=== PATIENT | male | born 1945 | race Caucasian/White ===

== ENCOUNTER 2020-07-04 02:44 | Inpatient (IN) ==
[2020-07-04] MEDS ORDERED: ONDANSETRON 4 MG/2 ML VIAL IV STA (02:58)
[2020-07-04] MEDS ORDERED: MORPHINE 4 MG/1 ML VIAL IV STA (02:58)
[2020-07-04] MEDS ORDERED: FUROSEMIDE 100 MG/10 ML VIAL IV STA (02:58)
[2020-07-04] MEDS ORDERED: methylPREDNISolone SOD SUC 125 MG/2 ML VIAL IV STA (02:58)
[2020-07-04] MEDS ORDERED: ASPIRIN 325 MG TABLET PO STA (02:58)
[2020-07-04] MEDS ORDERED: FUROSEMIDE 20 MG/2 ML VIAL IV STA (03:04)
[2020-07-04] MEDS ORDERED: FUROSEMIDE 40 MG/4 ML VIAL ONE (03:04)
[2020-07-04 03:05] LABS: Basophils # 0.1 10*3/uL (0.0-0.2); Basophils % 0.8 % (0.0-0.8); Eosinophils # 0.3 10*3/uL (0.0-0.87); Eosinophils % 2.3 % (0.00-10.9); Hematocrit 41.5 VOL% (42.0-52.0); Hemoglobin 13.5 GM/DL (14.0-18.0); Immature Granulocytes % 0.6 %; Immature Granulocytes Absolute 0.07 #; Lymphocytes % 18.2 % (21.2-54.2); Mean Corpuscular HGB Conc 32.5 GM/DL (32-36); Mean Corpuscular Volume 92.4 FL (87-102); Mean Platelet Volume 9.4 FL (9.6-12.0); Neutrophils % 72.1 % (38.7-73.9); Platelet Count 254 T/CUMM (130-400); Red Blood Count 4.49 MC/CUMM (3.8-5.5); Red Cell Distribution Width 13.3 % (9.3-17.3); White Blood Count 11.1 T/CUMM (4-12)
[2020-07-04 03:28] LABS: Alanine Aminotransferase 37 U/L (16-61); Albumin 3.9 G/DL (3.4-5.0); Alkaline Phosphatase 61 U/L (45-117); Aspartate Amino Transferase 29 U/L (0-37); Bilirubin,Total < 0.39 MG/DL (0.2-1.0); Blood Urea Nitrogen 27 MG/DL (7-18); Calcium 9.1 MG/DL (8.5-10.1); Carbon Dioxide 27 MMOL/L (21-32); Estimated Glom Filtration Rate 73 ML/MIN; Glucose 356 MG/DL (74-106); Osmolality,Calculated 288.1 MOS/KG (273-304); Potassium 3.9 MMOL/L (3.5-5.1); Sodium 135 MMOL/L (136-145); Total Protein 7.5 G/DL (5.0-7.5)
[2020-07-04] MEDS ORDERED: INSULIN REGULAR 100 UNIT/ML SUBCUT STA (03:36)
[2020-07-04] MEDS ORDERED: NICOTINE 21 MG/24 HR PATCH TRANSDERM PRN (03:53)
[2020-07-04] MEDS ORDERED: ONDANSETRON 4 MG/2 ML VIAL IV PRN (03:53)
[2020-07-04] MEDS ORDERED: MORPHINE 4 MG/1 ML VIAL IV PRN (03:53)
[2020-07-04] MEDS ORDERED: GLUCAGON 1 MG VIAL IM PRN (03:53)
[2020-07-04] MEDS ORDERED: diphenhydrAMINE CAP 25 MG CAPSULE PO PRN (03:53)
[2020-07-04] MEDS ORDERED: ALUMINUM/MAGNES/SIMETH MAX STR 30 ML UDCUP PO PRN (03:53)
[2020-07-04] MEDS ORDERED: DEXTROSE 50% 25 GM/50 ML VIAL IV PRN (03:53)
[2020-07-04] MEDS ORDERED: hydrALAZINE 20 MG/1 ML VIAL IV PRN (03:53)
[2020-07-04 04:35] LABS: ABG HCO3 23.4 MMOL/L (20-26); ABG Oxygen Saturation 95.9 % (95-100); ABG PCO2 42.4 MM HG (35-48); ABG PO2 87.9 MM HG (80-95); ABG TCO2 24.7 MMOL/L (23-27)
[2020-07-04] MEDS ORDERED: DIAZEPAM 5 MG TABLET PO ONE ×2 (06:38→07:38)
[2020-07-04] MEDS ORDERED: ASPIRIN 325 MG TABLET PO ONE (06:38)
[2020-07-04] MEDS ORDERED: POTASSIUM CHLORIDE RIDER 10 MEQ in PREMIX 1 EACH IV PRN ×2 (06:38→07:38)
[2020-07-04] MEDS ORDERED: diphenhydrAMINE CAP 25 MG CAPSULE PO ONE ×2 (06:38→07:38)
[2020-07-04] MEDS ORDERED: MAGNESIUM SULF RIDER 2 GM in PREMIX 1 EACH IV PRN ×2 (06:38→07:38)
[2020-07-04] MEDS: INSULIN REGULAR 100 UNIT/ML SUBCUT SCH ×3 (06:56→17:40)
[2020-07-04] MEDS ORDERED: NITROGLYCERIN SL 0.4 MG TABLET SL PRN (06:56)
[2020-07-04] MEDS: ALBUTEROL/IPRATROPIUM 3 ML NEB RESP TX SCH ×3 (07:30→19:38)
[2020-07-04] MEDS ORDERED: SODIUM CHLORIDE 0.45% 1,000 ML IV SCH (08:00)
[2020-07-04] MEDS: SODIUM CHLORIDE 0.9% 1,000 ML IV SCH ×2 (08:52→16:49)
[2020-07-04] MEDS: ENOXAPARIN 100 MG/ML SYRINGE SUBCUT SCH ×2 (08:52→22:50)
[2020-07-04] MEDS: lisinopriL 20 MG TABLET PO SCH (08:52)
[2020-07-04] MEDS: RANOLAZINE 500 MG TABLET PO SCH ×2 (08:53→22:31)
[2020-07-04] MEDS: atenoloL 50 MG TABLET PO SCH ×2 (08:53→22:30)
[2020-07-04] MEDS: POTASSIUM CHLORIDE 20 MEQ TABLET PO SCH (08:53)
[2020-07-04] MEDS ORDERED: LIDOCAINE 1% 20 ML VIAL ONE (13:49)
[2020-07-04] MEDS ORDERED: fentaNYL 100 MCG/2 ML VIAL ONE (13:50)
[2020-07-04] MEDS ORDERED: MIDAZOLAM 2 MG/2 ML VIAL ONE (13:50)
[2020-07-04] MEDS ORDERED: HYDROmorphone 2 MG/1 ML VIAL ONE (15:17)
[2020-07-04] MEDS: FUROSEMIDE 40 MG/4 ML VIAL IV SCH (16:49)
[2020-07-04] MEDS: ROSUVASTATIN 20 MG TABLET PO SCH (22:31)
[2020-07-04] MEDS: INSULIN GLARGINE 100 UNIT/ML SUBCUT SCH (22:51)
[2020-07-05] MEDS: ALBUTEROL/IPRATROPIUM 3 ML NEB RESP TX SCH ×4 (00:26→19:38)
[2020-07-05] MEDS: SODIUM CHLORIDE 0.9% 1,000 ML IV SCH (00:43)
[2020-07-05] MEDS: INSULIN REGULAR 100 UNIT/ML SUBCUT SCH ×4 (00:59→18:18)
[2020-07-05] MEDS ORDERED: ALBUTEROL/IPRATROPIUM 3 ML NEB RESP TX PRN (05:09)
[2020-07-05 05:56] LABS: Basophils # 0.1 10*3/uL (0.0-0.2); Basophils % 0.4 % (0.0-0.8); Eosinophils % 0.1 % (0.00-10.9); Hematocrit 39.8 VOL% (42.0-52.0); Immature Granulocytes % 0.4 %; Immature Granulocytes Absolute 0.05 #; Lymphocytes # 2.1 10*3/uL (1.4-4.0); Lymphocytes % 16.1 % (21.2-54.2); Mean Corpuscular HGB Conc 32.7 GM/DL (32-36); Mean Corpuscular Volume 92.8 FL (87-102); Mean Platelet Volume 9.4 FL (9.6-12.0); Monocytes % 8.7 % (1.7-12.7); Neutrophils % 74.3 % (38.7-73.9); Platelet Count 261 T/CUMM (130-400); Red Blood Count 4.29 MC/CUMM (3.8-5.5); Red Cell Distribution Width 13.9 % (9.3-17.3); White Blood Count 13.1 T/CUMM (4-12)
[2020-07-05 06:07] LABS: Calcium 8.4 MG/DL (8.5-10.1); Osmolality,Calculated 285.7 MOS/KG (273-304); Potassium 4.1 MMOL/L (3.5-5.1)
[2020-07-05 06:14] LABS: CKMB % 4.2 %; Risk Ratio 4.54
[2020-07-05 06:18] LABS: Troponin I 19.1 NG/ML (0.00-0.045)
[2020-07-05] MEDS: FUROSEMIDE 40 MG/4 ML VIAL IV SCH ×2 (07:22→17:25)
[2020-07-05] MEDS: ENOXAPARIN 100 MG/ML SYRINGE SUBCUT SCH (08:17)
[2020-07-05] MEDS: lisinopriL 20 MG TABLET PO SCH (08:17)
[2020-07-05] MEDS: POTASSIUM CHLORIDE 20 MEQ TABLET PO SCH (08:17)
[2020-07-05] MEDS: RANOLAZINE 500 MG TABLET PO SCH ×2 (08:17→22:14)
[2020-07-05] MEDS: atenoloL 50 MG TABLET PO SCH ×2 (08:18→22:13)
[2020-07-05] MEDS: ASPIRIN EC 81 MG TABLET PO SCH (12:27)
[2020-07-05] MEDS: ROSUVASTATIN 20 MG TABLET PO SCH (22:12)
[2020-07-05] MEDS: TAMSULOSIN 0.4 MG CAPSULE PO SCH (22:13)
[2020-07-05] MEDS: APIXABAN 5 MG TABLET PO SCH (22:14)
[2020-07-05] MEDS: guaiFENesin/DM ER 600-30 MG TABLET PO PRN (22:14)
[2020-07-05] MEDS: ACETAMINOPHEN 325 MG TABLET PO PRN (22:16)
[2020-07-05] MEDS: INSULIN GLARGINE 100 UNIT/ML SUBCUT SCH (22:20)
[2020-07-06] MEDS: ALBUTEROL/IPRATROPIUM 3 ML NEB RESP TX SCH ×4 (00:43→19:21)
[2020-07-06 05:30] LABS: Calcium 7.8 MG/DL (8.5-10.1); Osmolality,Calculated 281.8 MOS/KG (273-304)
[2020-07-06] MEDS: INSULIN REGULAR 100 UNIT/ML SUBCUT SCH ×5 (06:00→23:22)
[2020-07-06] MEDS ORDERED: clonazePAM 0.5 MG TABLET PO PRN (07:49)
[2020-07-06] MEDS ORDERED: AZITHROMYCIN 250 MG TABLET PO ONE (08:30)
[2020-07-06] MEDS ORDERED: FUROSEMIDE 20 MG TABLET PO SCH (09:00)
[2020-07-06 09:04] LABS: Basophils % 0.4 % (0.0-0.8); Eosinophils % 0.1 % (0.00-10.9); Hematocrit 34.3 VOL% (42.0-52.0); Hemoglobin 11.6 GM/DL (14.0-18.0); Immature Granulocytes % 0.4 %; Immature Granulocytes Absolute 0.04 #; Lymphocytes # 1.2 10*3/uL (1.4-4.0); Lymphocytes % 11.2 % (21.2-54.2); Mean Corpuscular HGB Conc 33.8 GM/DL (32-36); Mean Corpuscular Volume 90.5 FL (87-102); Mean Platelet Volume 9.6 FL (9.6-12.0); Monocytes % 11.3 % (1.7-12.7); Neutrophils % 76.6 % (38.7-73.9); Platelet Count 179 T/CUMM (130-400); Red Blood Count 3.79 MC/CUMM (3.8-5.5); Red Cell Distribution Width 13.5 % (9.3-17.3); White Blood Count 10.7 T/CUMM (4-12)
[2020-07-06] MEDS: guaiFENesin/DM ER 600-30 MG TABLET PO PRN (09:46)
[2020-07-06] MEDS: ASPIRIN EC 81 MG TABLET PO SCH (09:46)
[2020-07-06] MEDS: atenoloL 50 MG TABLET PO SCH ×2 (09:46→20:30)
[2020-07-06] MEDS: APIXABAN 5 MG TABLET PO SCH ×2 (09:47→20:30)
[2020-07-06] MEDS: OLMESARTAN 20 MG TABLET PO SCH (09:47)
[2020-07-06] MEDS: TAMSULOSIN 0.4 MG CAPSULE PO SCH ×2 (09:47→20:30)
[2020-07-06] MEDS: POTASSIUM CHLORIDE 20 MEQ TABLET PO SCH (09:47)
[2020-07-06] MEDS: MAGNESIUM CHLORIDE 64 MG TABLET PO SCH (09:48)
[2020-07-06] MEDS: FUROSEMIDE 40 MG/4 ML VIAL IV SCH ×2 (09:49→15:40)
[2020-07-06] MEDS: GLIMEPIRIDE 4 MG TABLET PO SCH (10:56)
[2020-07-06] MEDS: ACETAMINOPHEN 325 MG TABLET PO PRN (20:29)
[2020-07-06] MEDS: INSULIN GLARGINE 100 UNIT/ML SUBCUT SCH (20:30)
[2020-07-06] MEDS: ROSUVASTATIN 20 MG TABLET PO SCH (20:30)
[2020-07-07] MEDS: ALBUTEROL/IPRATROPIUM 3 ML NEB RESP TX SCH ×4 (00:30→19:21)
[2020-07-07] MEDS: ACETAMINOPHEN 325 MG TABLET PO PRN ×2 (04:55→13:37)
[2020-07-07] MEDS: INSULIN REGULAR 100 UNIT/ML SUBCUT SCH ×4 (05:50→22:05)
[2020-07-07 08:53] LABS: Calcium 8.2 MG/DL (8.5-10.1); Osmolality,Calculated 277.4 MOS/KG (273-304)
[2020-07-07] MEDS: GLIMEPIRIDE 4 MG TABLET PO SCH (09:55)
[2020-07-07] MEDS: AZITHROMYCIN 250 MG TABLET PO SCH (09:55)
[2020-07-07] MEDS: FUROSEMIDE 40 MG TABLET PO SCH (09:55)
[2020-07-07] MEDS: TAMSULOSIN 0.4 MG CAPSULE PO SCH ×2 (09:56→21:36)
[2020-07-07] MEDS: ASPIRIN EC 81 MG TABLET PO SCH (09:56)
[2020-07-07] MEDS: MAGNESIUM CHLORIDE 64 MG TABLET PO SCH (09:56)
[2020-07-07] MEDS: guaiFENesin/DM ER 600-30 MG TABLET PO PRN ×2 (09:56→21:37)
[2020-07-07] MEDS: APIXABAN 5 MG TABLET PO SCH ×2 (09:56→21:37)
[2020-07-07] MEDS: POTASSIUM CHLORIDE 20 MEQ TABLET PO SCH (09:56)
[2020-07-07] MEDS: methylPREDNISolone SOD SUC 40 MG/1 ML VIAL IV SCH ×2 (09:56→17:10)
[2020-07-07] MEDS: cefTRIAXone 1,000 MG in SYRINGE 1 EACH IV SCH (09:59)
[2020-07-07] MEDS ORDERED: metOLazone 5 MG TABLET PO SCH (12:00)
[2020-07-07] MEDS: BUDESONIDE/FORMOTEROL 160-4.5 INHALER 6 GM INH SCH ×2 (12:54→21:37)
[2020-07-07] MEDS: ROSUVASTATIN 20 MG TABLET PO SCH (21:36)
[2020-07-07] MEDS: INSULIN GLARGINE 100 UNIT/ML SUBCUT SCH (22:06)
[2020-07-08] MEDS: ALBUTEROL/IPRATROPIUM 3 ML NEB RESP TX SCH ×4 (00:22→19:51)
[2020-07-08] MEDS: methylPREDNISolone SOD SUC 40 MG/1 ML VIAL IV SCH ×2 (01:45→08:54)
[2020-07-08] MEDS: INSULIN REGULAR 100 UNIT/ML SUBCUT SCH ×4 (01:46→17:22)
[2020-07-08 07:12] LABS: Hematocrit 33.3 VOL% (42.0-52.0); Hemoglobin 11.2 GM/DL (14.0-18.0); Immature Granulocytes % 0.5 %; Immature Granulocytes Absolute 0.03 #; Lymphocytes # 0.5 10*3/uL (1.4-4.0); Lymphocytes % 7.7 % (21.2-54.2); Mean Corpuscular HGB Conc 33.6 GM/DL (32-36); Mean Corpuscular Volume 89.5 FL (87-102); Mean Platelet Volume 9.9 FL (9.6-12.0); Monocytes % 6.1 % (1.7-12.7); Neutrophils % 85.7 % (38.7-73.9); Platelet Count 196 T/CUMM (130-400); Red Blood Count 3.72 MC/CUMM (3.8-5.5); Red Cell Distribution Width 13.2 % (9.3-17.3); White Blood Count 5.9 T/CUMM (4-12)
[2020-07-08 07:30] LABS: Bilirubin,Total 0.7 MG/DL (0.2-1.0); Calcium 8.4 MG/DL (8.5-10.1); Osmolality,Calculated 283.1 MOS/KG (273-304); Potassium 3.9 MMOL/L (3.5-5.1); Total Protein 6.8 G/DL (6.4-8.2)
[2020-07-08] MEDS: GLIMEPIRIDE 4 MG TABLET PO SCH (08:49)
[2020-07-08] MEDS: FUROSEMIDE 40 MG TABLET PO SCH (08:49)
[2020-07-08] MEDS: POTASSIUM CHLORIDE 20 MEQ TABLET PO SCH (08:49)
[2020-07-08] MEDS: TAMSULOSIN 0.4 MG CAPSULE PO SCH ×2 (08:49→20:50)
[2020-07-08] MEDS: APIXABAN 5 MG TABLET PO SCH ×2 (08:49→20:49)
[2020-07-08] MEDS: AZITHROMYCIN 250 MG TABLET PO SCH (08:49)
[2020-07-08] MEDS: ASPIRIN EC 81 MG TABLET PO SCH (08:49)
[2020-07-08] MEDS: MAGNESIUM CHLORIDE 64 MG TABLET PO SCH (08:51)
[2020-07-08] MEDS: OLMESARTAN 20 MG TABLET PO SCH (08:54)
[2020-07-08] MEDS: atenoloL 50 MG TABLET PO SCH ×2 (08:54→20:49)
[2020-07-08] MEDS: BUDESONIDE/FORMOTEROL 160-4.5 INHALER 6 GM INH SCH ×2 (08:54→20:51)
[2020-07-08] MEDS: cefTRIAXone 1,000 MG in SYRINGE 1 EACH IV SCH (08:57)
[2020-07-08] MEDS: ISOSORBIDE MONONITRATE 30 MG TABLET PO SCH (09:55)
[2020-07-08] MEDS: predniSONE 20 MG TABLET PO SCH (09:55)
[2020-07-08] MEDS: ROSUVASTATIN 20 MG TABLET PO SCH (20:48)
[2020-07-08] MEDS: guaiFENesin/DM ER 600-30 MG TABLET PO PRN (20:50)
[2020-07-08] MEDS: ZALEPLON 5 MG CAPSULE PO PRN (20:50)
[2020-07-08] MEDS: INSULIN GLARGINE 100 UNIT/ML SUBCUT SCH (21:11)
[2020-07-09] MEDS: ZALEPLON 5 MG CAPSULE PO PRN ×2 (00:45→21:47)
[2020-07-09] MEDS: INSULIN REGULAR 100 UNIT/ML SUBCUT SCH ×4 (00:46→18:06)
[2020-07-09] MEDS: ALBUTEROL/IPRATROPIUM 3 ML NEB RESP TX SCH ×4 (07:30→19:25)
[2020-07-09] MEDS: AZITHROMYCIN 250 MG TABLET PO SCH (08:51)
[2020-07-09] MEDS: APIXABAN 5 MG TABLET PO SCH ×2 (08:51→21:46)
[2020-07-09] MEDS: POTASSIUM CHLORIDE 20 MEQ TABLET PO SCH (08:52)
[2020-07-09] MEDS: TAMSULOSIN 0.4 MG CAPSULE PO SCH ×2 (08:52→21:48)
[2020-07-09] MEDS: GLIMEPIRIDE 4 MG TABLET PO SCH (08:53)
[2020-07-09] MEDS: FUROSEMIDE 40 MG TABLET PO SCH (08:55)
[2020-07-09] MEDS: atenoloL 50 MG TABLET PO SCH ×2 (08:56→21:47)
[2020-07-09] MEDS: predniSONE 20 MG TABLET PO SCH (08:56)
[2020-07-09] MEDS: OLMESARTAN 20 MG TABLET PO SCH (08:56)
[2020-07-09] MEDS: ISOSORBIDE MONONITRATE 30 MG TABLET PO SCH (08:57)
[2020-07-09] MEDS: ASPIRIN EC 81 MG TABLET PO SCH (08:57)
[2020-07-09] MEDS: BUDESONIDE/FORMOTEROL 160-4.5 INHALER 6 GM INH SCH ×2 (08:59→21:54)
[2020-07-09] MEDS: cefTRIAXone 1,000 MG in SYRINGE 1 EACH IV SCH (09:00)
[2020-07-09] MEDS: MAGNESIUM CHLORIDE 64 MG TABLET PO SCH (09:00)
[2020-07-09] MEDS: ROSUVASTATIN 20 MG TABLET PO SCH (21:46)
[2020-07-09] MEDS: INSULIN GLARGINE 100 UNIT/ML SUBCUT SCH (21:47)
[2020-07-09] MEDS: guaiFENesin/DM ER 600-30 MG TABLET PO PRN (21:48)
[2020-07-10] MEDS: ZALEPLON 5 MG CAPSULE PO PRN (00:13)
[2020-07-10] MEDS: INSULIN REGULAR 100 UNIT/ML SUBCUT SCH ×3 (01:08→14:26)
[2020-07-10] MEDS: ALBUTEROL/IPRATROPIUM 3 ML NEB RESP TX SCH ×3 (01:40→12:28)
[2020-07-10] MEDS: ACETAMINOPHEN 325 MG TABLET PO PRN (05:49)
[2020-07-10 08:40] LABS: Basophils % 0.2 % (0.0-0.8); Eosinophils # 0.1 10*3/uL (0.0-0.87); Eosinophils % 0.6 % (0.00-10.9); Hematocrit 36.1 VOL% (42.0-52.0); Hemoglobin 11.8 GM/DL (14.0-18.0); Immature Granulocytes % 0.6 %; Immature Granulocytes Absolute 0.05 #; Lymphocytes # 1.5 10*3/uL (1.4-4.0); Lymphocytes % 17.6 % (21.2-54.2); Mean Corpuscular HGB Conc 32.7 GM/DL (32-36); Mean Corpuscular Volume 91.9 FL (87-102); Mean Platelet Volume 9.7 FL (9.6-12.0); Monocytes % 12.9 % (1.7-12.7); Neutrophils % 68.1 % (38.7-73.9); Platelet Count 247 T/CUMM (130-400); Red Blood Count 3.93 MC/CUMM (3.8-5.5); Red Cell Distribution Width 13.2 % (9.3-17.3); White Blood Count 8.6 T/CUMM (4-12)
[2020-07-10] MEDS: AZITHROMYCIN 250 MG TABLET PO SCH (08:48)
[2020-07-10] MEDS: ISOSORBIDE MONONITRATE 30 MG TABLET PO SCH (08:48)
[2020-07-10] MEDS: TAMSULOSIN 0.4 MG CAPSULE PO SCH (08:49)
[2020-07-10] MEDS: POTASSIUM CHLORIDE 20 MEQ TABLET PO SCH (08:49)
[2020-07-10] MEDS: OLMESARTAN 20 MG TABLET PO SCH (08:49)
[2020-07-10] MEDS: MAGNESIUM CHLORIDE 64 MG TABLET PO SCH (08:50)
[2020-07-10] MEDS: predniSONE 20 MG TABLET PO SCH (08:50)
[2020-07-10] MEDS: ASPIRIN EC 81 MG TABLET PO SCH (08:50)
[2020-07-10] MEDS: FUROSEMIDE 40 MG TABLET PO SCH (08:50)
[2020-07-10] MEDS: atenoloL 50 MG TABLET PO SCH (08:50)
[2020-07-10] MEDS: APIXABAN 5 MG TABLET PO SCH (08:50)
[2020-07-10] MEDS: GLIMEPIRIDE 4 MG TABLET PO SCH (08:51)
[2020-07-10] MEDS: cefTRIAXone 1,000 MG in SYRINGE 1 EACH IV SCH (08:51)
[2020-07-10 08:53] LABS: Calcium 8.7 MG/DL (8.5-10.1); Osmolality,Calculated 286.7 MOS/KG (273-304); Potassium 4.1 MMOL/L (3.5-5.1)
[2020-07-10] MEDS: BUDESONIDE/FORMOTEROL 160-4.5 INHALER 6 GM INH SCH (08:58)
[2020-07-10 12:13] VITALS: BP 101/56
== END 2020-07-10 16:26 | disposition home or self-care (01) | DRG 280 ==
LOC: EDBD → EDUNIT# → N.ED 02:44 → SUATTDRO 03:53 → N.EDINP 03:53 → N.TELEN 04:30
PROVIDERS: ADMIT Hospitalist; ATTEND Hospitalist

== ENCOUNTER 2020-07-20 20:22 | Inpatient (IN) ==
[2020-07-20 20:56] LABS: Basophils # 0.1 10*3/uL (0.0-0.2); Basophils % 0.5 % (0.0-0.8); Eosinophils # 0.2 10*3/uL (0.0-0.87); Hematocrit 40.3 VOL% (42.0-52.0); Hemoglobin 12.8 GM/DL (14.0-18.0); Immature Granulocytes % 0.4 %; Immature Granulocytes Absolute 0.06 #; Lymphocytes # 2.5 10*3/uL (1.4-4.0); Lymphocytes % 17.1 % (21.2-54.2); Mean Corpuscular HGB Conc 31.8 GM/DL (32-36); Mean Corpuscular Volume 94.2 FL (87-102); Mean Platelet Volume 9.3 FL (9.6-12.0); Monocytes % 5.9 % (1.7-12.7); Neutrophils % 75.1 % (38.7-73.9); Platelet Count 319 T/CUMM (130-400); Red Blood Count 4.28 MC/CUMM (3.8-5.5); Red Cell Distribution Width 13.4 % (9.3-17.3); White Blood Count 14.6 T/CUMM (4-12)
[2020-07-20 21:04] LABS: PT Patient Result 11.2 SECS (9.8-11.9); Partial Thromboplastin Time 26.5 SECS (23.9-33.8)
[2020-07-20 21:14] LABS: Alanine Aminotransferase 49 U/L (16-61); Albumin 3.5 G/DL (3.4-5.0); Alkaline Phosphatase 56 U/L (45-117); Aspartate Amino Transferase 25 U/L (0-37); Blood Urea Nitrogen 24 MG/DL (7-18); Calcium 8.8 MG/DL (8.5-10.1); Carbon Dioxide 23 MMOL/L (21-32); Estimated Glom Filtration Rate 70 ML/MIN; Glucose 203 MG/DL (74-106); Osmolality,Calculated 288.4 MOS/KG (273-304); Potassium 4.1 MMOL/L (3.5-5.1); Sodium 140 MMOL/L (136-145); Total Protein 6.9 G/DL (6.4-8.2)
[2020-07-20 21:31] LABS: Troponin I 0.373 NG/ML (0.00-0.045)
[2020-07-20] MEDS ORDERED: cefTRIAXone 1,000 MG in SODIUM CHLORIDE 0.9% 100 ML IV STA (21:51)
[2020-07-20] MEDS ORDERED: SODIUM CHLORIDE 0.9% 500 ML IV STA (21:52)
[2020-07-21] MEDS ORDERED: FUROSEMIDE 40 MG/4 ML VIAL IV STA (01:23)
[2020-07-21] MEDS ORDERED: ACETAMINOPHEN 325 MG TABLET PO PRN (02:37)
[2020-07-21] MEDS ORDERED: GLUCAGON 1 MG VIAL IM PRN (02:37)
[2020-07-21] MEDS ORDERED: DOCUSATE SODIUM 100 MG CAPSULE PO PRN (02:37)
[2020-07-21] MEDS ORDERED: ONDANSETRON 4 MG/2 ML VIAL IV PRN (02:37)
[2020-07-21] MEDS ORDERED: DEXTROSE 50% 25 GM/50 ML VIAL IV PRN (02:37)
[2020-07-21] MEDS ORDERED: ALBUTEROL 2.5 MG/3 ML NEB RESP TX PRN (02:37)
[2020-07-21] MEDS: methylPREDNISolone SOD SUC 40 MG/1 ML VIAL IV SCH ×2 (02:58→15:59)
[2020-07-21] MEDS: CEFEPIME 1,000 MG in SODIUM CHLORIDE 0.9% 100 ML IV SCH ×4 (03:00→21:31)
[2020-07-21 05:22] LABS: Basophils # 0.1 10*3/uL (0.0-0.2); Basophils % 0.4 % (0.0-0.8); Eosinophils # 0.1 10*3/uL (0.0-0.87); Eosinophils % 0.6 % (0.00-10.9); Hemoglobin 12.2 GM/DL (14.0-18.0); Immature Granulocytes % 0.6 %; Immature Granulocytes Absolute 0.08 #; Lymphocytes # 1.3 10*3/uL (1.4-4.0); Lymphocytes % 8.9 % (21.2-54.2); Mean Corpuscular HGB Conc 32.1 GM/DL (32-36); Mean Corpuscular Volume 93.4 FL (87-102); Mean Platelet Volume 9.1 FL (9.6-12.0); Monocytes % 3.5 % (1.7-12.7); Platelet Count 295 T/CUMM (130-400); Red Blood Count 4.07 MC/CUMM (3.8-5.5); Red Cell Distribution Width 13.4 % (9.3-17.3); White Blood Count 14.3 T/CUMM (4-12)
[2020-07-21 05:37] LABS: Calcium 8.9 MG/DL (8.5-10.1); Osmolality,Calculated 287.3 MOS/KG (273-304); Potassium 4.1 MMOL/L (3.5-5.1)
[2020-07-21] MEDS: ALBUTEROL/IPRATROPIUM 3 ML NEB RESP TX SCH ×3 (07:15→20:55)
[2020-07-21] MEDS: FUROSEMIDE 40 MG/4 ML VIAL IV SCH ×2 (08:32→16:17)
[2020-07-21] MEDS ORDERED: NITROGLYCERIN SL 0.4 MG TABLET SL PRN (08:37)
[2020-07-21] MEDS ORDERED: IPRATROPIUM/ALBUTEROL INHALER INH SCH (09:00)
[2020-07-21] MEDS: INSULIN LISPRO 100 UNIT/ML SUBCUT SCH ×4 (10:00→21:31)
[2020-07-21] MEDS: BUDESONIDE/FORMOTEROL 160-4.5 INHALER 6 GM INH SCH ×2 (10:00→21:39)
[2020-07-21] MEDS: GLIMEPIRIDE 4 MG TABLET PO SCH (11:02)
[2020-07-21] MEDS: clonazePAM 0.5 MG TABLET PO PRN (11:02)
[2020-07-21] MEDS: NEBIVOLOL 5 MG TABLET PO SCH (11:03)
[2020-07-21] MEDS: APIXABAN 5 MG TABLET PO SCH ×2 (11:03→21:29)
[2020-07-21] MEDS: TAMSULOSIN 0.4 MG CAPSULE PO SCH ×2 (11:03→21:29)
[2020-07-21] MEDS: MAGNESIUM CHLORIDE 64 MG TABLET PO SCH (11:04)
[2020-07-21] MEDS: ISOSORBIDE MONONITRATE 30 MG TABLET PO SCH (11:04)
[2020-07-21] MEDS: OLMESARTAN 20 MG TABLET PO SCH (11:07)
[2020-07-21] MEDS: ASPIRIN EC 81 MG TABLET PO SCH (11:07)
[2020-07-21] MEDS: AMIODARONE 200 MG TABLET PO SCH ×2 (12:51→21:29)
[2020-07-21] MEDS: metFORMIN 500 MG TABLET PO SCH (16:17)
[2020-07-21] MEDS: ROSUVASTATIN 20 MG TABLET PO SCH (21:29)
[2020-07-21] MEDS: INSULIN GLARGINE 100 UNIT/ML SUBCUT SCH (21:30)
[2020-07-22] MEDS: ALBUTEROL/IPRATROPIUM 3 ML NEB RESP TX SCH ×4 (01:04→21:21)
[2020-07-22] MEDS: methylPREDNISolone SOD SUC 40 MG/1 ML VIAL IV SCH ×2 (03:10→14:48)
[2020-07-22] MEDS: CEFEPIME 1,000 MG in SODIUM CHLORIDE 0.9% 100 ML IV SCH ×4 (03:14→20:12)
[2020-07-22 04:42] LABS: Basophils % 0.2 % (0.0-0.8); Hematocrit 32.1 VOL% (42.0-52.0); Hemoglobin 10.3 GM/DL (14.0-18.0); Immature Granulocytes % 0.2 %; Immature Granulocytes Absolute 0.02 #; Lymphocytes # 0.9 10*3/uL (1.4-4.0); Mean Corpuscular HGB Conc 32.1 GM/DL (32-36); Mean Corpuscular Volume 91.7 FL (87-102); Mean Platelet Volume 9.6 FL (9.6-12.0); Monocytes % 6.2 % (1.7-12.7); Neutrophils % 82.4 % (38.7-73.9); Platelet Count 247 T/CUMM (130-400); Red Cell Distribution Width 13.5 % (9.3-17.3); White Blood Count 8.1 T/CUMM (4-12)
[2020-07-22 05:10] LABS: Calcium 8.4 MG/DL (8.5-10.1); Osmolality,Calculated 291.4 MOS/KG (273-304); Potassium 3.8 MMOL/L (3.5-5.1)
[2020-07-22] MEDS: INSULIN LISPRO 100 UNIT/ML SUBCUT SCH ×4 (09:26→21:00)
[2020-07-22] MEDS: APIXABAN 5 MG TABLET PO SCH ×2 (09:27→20:12)
[2020-07-22] MEDS: metFORMIN 500 MG TABLET PO SCH ×2 (09:27→16:45)
[2020-07-22] MEDS: AMIODARONE 200 MG TABLET PO SCH ×2 (09:27→20:12)
[2020-07-22] MEDS: MAGNESIUM CHLORIDE 64 MG TABLET PO SCH (09:27)
[2020-07-22] MEDS: ASPIRIN EC 81 MG TABLET PO SCH (09:27)
[2020-07-22] MEDS: TAMSULOSIN 0.4 MG CAPSULE PO SCH ×2 (09:27→20:11)
[2020-07-22] MEDS: OLMESARTAN 20 MG TABLET PO SCH (09:27)
[2020-07-22] MEDS: GLIMEPIRIDE 4 MG TABLET PO SCH (09:27)
[2020-07-22] MEDS: NEBIVOLOL 5 MG TABLET PO SCH (09:28)
[2020-07-22] MEDS: FUROSEMIDE 40 MG/4 ML VIAL IV SCH ×2 (09:29→16:46)
[2020-07-22] MEDS: ISOSORBIDE MONONITRATE 30 MG TABLET PO SCH (09:29)
[2020-07-22] MEDS ORDERED: ZALEPLON 5 MG CAPSULE PO PRN (13:10)
[2020-07-22] MEDS: POLYETHYLENE GLYCOL POWDER 17 GM PACK PO SCH ×2 (14:47→20:11)
[2020-07-22] MEDS: BUDESONIDE/FORMOTEROL 160-4.5 INHALER 6 GM INH SCH ×2 (15:41→22:37)
[2020-07-22] MEDS: DOCUSATE SODIUM 100 MG CAPSULE PO SCH (20:11)
[2020-07-22] MEDS: SENNA 8.6 MG TABLET PO SCH (20:11)
[2020-07-22] MEDS: DOXYCYCLINE HYCLATE 100 MG CAPSULE PO SCH (20:11)
[2020-07-22] MEDS: ROSUVASTATIN 20 MG TABLET PO SCH (20:12)
[2020-07-22] MEDS: INSULIN GLARGINE 100 UNIT/ML SUBCUT SCH (21:01)
[2020-07-23] MEDS: ALBUTEROL/IPRATROPIUM 3 ML NEB RESP TX SCH ×4 (00:10→19:36)
[2020-07-23] MEDS: CEFEPIME 1,000 MG in SODIUM CHLORIDE 0.9% 100 ML IV SCH ×4 (04:00→20:45)
[2020-07-23] MEDS: methylPREDNISolone SOD SUC 40 MG/1 ML VIAL IV SCH ×2 (04:00→14:36)
[2020-07-23 06:39] LABS: Basophils % 0.1 % (0.0-0.8); Hematocrit 35.8 VOL% (42.0-52.0); Hemoglobin 11.9 GM/DL (14.0-18.0); Immature Granulocytes % 0.5 %; Immature Granulocytes Absolute 0.06 #; Lymphocytes # 0.9 10*3/uL (1.4-4.0); Lymphocytes % 7.6 % (21.2-54.2); Mean Corpuscular HGB Conc 33.2 GM/DL (32-36); Mean Platelet Volume 9.5 FL (9.6-12.0); Monocytes % 5.1 % (1.7-12.7); Neutrophils % 86.7 % (38.7-73.9); Platelet Count 310 T/CUMM (130-400); Red Blood Count 3.85 MC/CUMM (3.8-5.5); Red Cell Distribution Width 13.8 % (9.3-17.3); White Blood Count 12.1 T/CUMM (4-12)
[2020-07-23 06:56] LABS: Calcium 9.1 MG/DL (8.5-10.1); Osmolality,Calculated 291.8 MOS/KG (273-304); Potassium 4.7 MMOL/L (3.5-5.1)
[2020-07-23] MEDS: TAMSULOSIN 0.4 MG CAPSULE PO SCH ×2 (08:37→20:45)
[2020-07-23] MEDS: POLYETHYLENE GLYCOL POWDER 17 GM PACK PO SCH ×2 (08:37→21:53)
[2020-07-23] MEDS: INSULIN LISPRO 100 UNIT/ML SUBCUT SCH ×4 (08:37→20:51)
[2020-07-23] MEDS: metFORMIN 500 MG TABLET PO SCH ×2 (08:38→16:41)
[2020-07-23] MEDS: OLMESARTAN 20 MG TABLET PO SCH (08:38)
[2020-07-23] MEDS: AMIODARONE 200 MG TABLET PO SCH ×2 (08:38→20:44)
[2020-07-23] MEDS: DOCUSATE SODIUM 100 MG CAPSULE PO SCH ×2 (08:38→20:44)
[2020-07-23] MEDS: ASPIRIN EC 81 MG TABLET PO SCH (08:38)
[2020-07-23] MEDS: APIXABAN 5 MG TABLET PO SCH ×2 (08:38→20:45)
[2020-07-23] MEDS: MAGNESIUM CHLORIDE 64 MG TABLET PO SCH (08:38)
[2020-07-23] MEDS: FUROSEMIDE 40 MG/4 ML VIAL IV SCH ×2 (08:39→16:41)
[2020-07-23] MEDS: GLIMEPIRIDE 4 MG TABLET PO SCH (08:39)
[2020-07-23] MEDS: ISOSORBIDE MONONITRATE 30 MG TABLET PO SCH (08:39)
[2020-07-23] MEDS: DOXYCYCLINE HYCLATE 100 MG CAPSULE PO SCH (08:39)
[2020-07-23] MEDS: NEBIVOLOL 5 MG TABLET PO SCH (08:39)
[2020-07-23] MEDS: BUDESONIDE/FORMOTEROL 160-4.5 INHALER 6 GM INH SCH ×2 (10:13→20:52)
[2020-07-23] MEDS: LINACLOTIDE 145 MCG CAPSULE PO SCH (12:14)
[2020-07-23] MEDS: SENNA 8.6 MG TABLET PO SCH (20:44)
[2020-07-23] MEDS: ROSUVASTATIN 20 MG TABLET PO SCH (20:45)
[2020-07-23] MEDS: INSULIN GLARGINE 100 UNIT/ML SUBCUT SCH (20:52)
[2020-07-23] MEDS: MELATONIN 3 MG TABLET PO PRN (21:54)
[2020-07-24] MEDS: ALBUTEROL/IPRATROPIUM 3 ML NEB RESP TX SCH ×4 (01:05→20:02)
[2020-07-24] MEDS: methylPREDNISolone SOD SUC 40 MG/1 ML VIAL IV SCH (03:33)
[2020-07-24] MEDS: CEFEPIME 1,000 MG in SODIUM CHLORIDE 0.9% 100 ML IV SCH ×4 (03:34→22:12)
[2020-07-24 06:50] LABS: Basophils % 0.1 % (0.0-0.8); Hematocrit 33.7 VOL% (42.0-52.0); Hemoglobin 10.9 GM/DL (14.0-18.0); Immature Granulocytes % 0.5 %; Immature Granulocytes Absolute 0.04 #; Lymphocytes # 1.1 10*3/uL (1.4-4.0); Lymphocytes % 13.7 % (21.2-54.2); Mean Corpuscular HGB Conc 32.3 GM/DL (32-36); Mean Corpuscular Volume 93.4 FL (87-102); Mean Platelet Volume 9.3 FL (9.6-12.0); Neutrophils % 77.7 % (38.7-73.9); Platelet Count 232 T/CUMM (130-400); Red Blood Count 3.61 MC/CUMM (3.8-5.5); Red Cell Distribution Width 13.8 % (9.3-17.3); White Blood Count 8.3 T/CUMM (4-12)
[2020-07-24 07:18] LABS: Calcium 8.7 MG/DL (8.5-10.1); Osmolality,Calculated 284.7 MOS/KG (273-304); Potassium 4.2 MMOL/L (3.5-5.1)
[2020-07-24] MEDS: POLYETHYLENE GLYCOL POWDER 17 GM PACK PO SCH ×2 (08:49→22:14)
[2020-07-24] MEDS: metFORMIN 500 MG TABLET PO SCH ×2 (08:51→16:31)
[2020-07-24] MEDS: GLIMEPIRIDE 4 MG TABLET PO SCH (08:51)
[2020-07-24] MEDS: OLMESARTAN 20 MG TABLET PO SCH (08:51)
[2020-07-24] MEDS: MAGNESIUM CHLORIDE 64 MG TABLET PO SCH (08:52)
[2020-07-24] MEDS: AMIODARONE 200 MG TABLET PO SCH ×2 (08:52→20:03)
[2020-07-24] MEDS: APIXABAN 5 MG TABLET PO SCH ×2 (08:52→20:02)
[2020-07-24] MEDS: TAMSULOSIN 0.4 MG CAPSULE PO SCH ×2 (08:54→20:03)
[2020-07-24] MEDS: NEBIVOLOL 5 MG TABLET PO SCH (08:54)
[2020-07-24] MEDS: DOCUSATE SODIUM 100 MG CAPSULE PO SCH ×2 (08:55→20:02)
[2020-07-24] MEDS: ISOSORBIDE MONONITRATE 30 MG TABLET PO SCH (08:55)
[2020-07-24] MEDS: ASPIRIN EC 81 MG TABLET PO SCH (08:55)
[2020-07-24] MEDS: LINACLOTIDE 145 MCG CAPSULE PO SCH (08:56)
[2020-07-24] MEDS: FUROSEMIDE 40 MG/4 ML VIAL IV SCH ×2 (08:58→16:30)
[2020-07-24] MEDS: INSULIN LISPRO 100 UNIT/ML SUBCUT SCH ×4 (08:58→22:12)
[2020-07-24] MEDS: predniSONE 20 MG TABLET PO SCH (09:36)
[2020-07-24] MEDS: metOLazone 5 MG TABLET PO SCH (09:36)
[2020-07-24] MEDS: BUDESONIDE/FORMOTEROL 160-4.5 INHALER 6 GM INH SCH ×2 (09:56→22:14)
[2020-07-24] MEDS: LACTULOSE 20 GM/30 ML UDCUP PO SCH ×2 (11:02→20:03)
[2020-07-24] MEDS: clonazePAM 0.5 MG TABLET PO PRN (20:02)
[2020-07-24] MEDS: ROSUVASTATIN 20 MG TABLET PO SCH (20:03)
[2020-07-24] MEDS: SENNA 8.6 MG TABLET PO SCH (20:03)
[2020-07-24] MEDS: MELATONIN 3 MG TABLET PO PRN (20:03)
[2020-07-24] MEDS: INSULIN GLARGINE 100 UNIT/ML SUBCUT SCH (22:12)
[2020-07-25] MEDS: ALBUTEROL/IPRATROPIUM 3 ML NEB RESP TX SCH ×4 (01:30→19:47)
[2020-07-25] MEDS: CEFEPIME 1,000 MG in SODIUM CHLORIDE 0.9% 100 ML IV SCH ×4 (02:36→21:05)
[2020-07-25 05:20] LABS: Basophils % 0.1 % (0.0-0.8); Hemoglobin 10.7 GM/DL (14.0-18.0); Immature Granulocytes % 0.3 %; Immature Granulocytes Absolute 0.03 #; Lymphocytes # 1.8 10*3/uL (1.4-4.0); Mean Corpuscular HGB Conc 31.5 GM/DL (32-36); Mean Corpuscular Volume 94.7 FL (87-102); Mean Platelet Volume 9.3 FL (9.6-12.0); Monocytes % 9.6 % (1.7-12.7); Platelet Count 237 T/CUMM (130-400); Red Blood Count 3.59 MC/CUMM (3.8-5.5); Red Cell Distribution Width 13.5 % (9.3-17.3); White Blood Count 9.1 T/CUMM (4-12)
[2020-07-25 05:42] LABS: Blood Urea Nitrogen 41 MG/DL (7-18); Calcium 8.8 MG/DL (8.5-10.1); Carbon Dioxide 26 MMOL/L (21-32); Estimated Glom Filtration Rate 71 ML/MIN; Glucose 77 MG/DL (74-106); Osmolality,Calculated 283.7 MOS/KG (273-304); Sodium 138 MMOL/L (136-145)
[2020-07-25] MEDS: INSULIN LISPRO 100 UNIT/ML SUBCUT SCH ×4 (09:41→21:04)
[2020-07-25] MEDS: MAGNESIUM CHLORIDE 64 MG TABLET PO SCH (09:44)
[2020-07-25] MEDS: LINACLOTIDE 145 MCG CAPSULE PO SCH (09:44)
[2020-07-25] MEDS: DOCUSATE SODIUM 100 MG CAPSULE PO SCH ×2 (09:45→21:04)
[2020-07-25] MEDS: OLMESARTAN 20 MG TABLET PO SCH (09:45)
[2020-07-25] MEDS: NEBIVOLOL 5 MG TABLET PO SCH (09:46)
[2020-07-25] MEDS: GLIMEPIRIDE 4 MG TABLET PO SCH (09:46)
[2020-07-25] MEDS: ASPIRIN EC 81 MG TABLET PO SCH (09:46)
[2020-07-25] MEDS: APIXABAN 5 MG TABLET PO SCH ×2 (09:47→21:04)
[2020-07-25] MEDS: metOLazone 5 MG TABLET PO SCH (09:47)
[2020-07-25] MEDS: ISOSORBIDE MONONITRATE 30 MG TABLET PO SCH (09:49)
[2020-07-25] MEDS: TAMSULOSIN 0.4 MG CAPSULE PO SCH ×2 (09:49→21:04)
[2020-07-25] MEDS: predniSONE 20 MG TABLET PO SCH (09:50)
[2020-07-25] MEDS: AMIODARONE 200 MG TABLET PO SCH ×2 (09:50→21:03)
[2020-07-25] MEDS: BUDESONIDE/FORMOTEROL 160-4.5 INHALER 6 GM INH SCH ×2 (09:51→21:08)
[2020-07-25] MEDS: metFORMIN 500 MG TABLET PO SCH ×2 (09:51→16:44)
[2020-07-25] MEDS: FUROSEMIDE 40 MG/4 ML VIAL IV SCH ×2 (09:52→16:34)
[2020-07-25] MEDS: POLYETHYLENE GLYCOL POWDER 17 GM PACK PO SCH (10:04)
[2020-07-25] MEDS: LACTULOSE 20 GM/30 ML UDCUP PO SCH ×3 (10:04→21:09)
[2020-07-25] MEDS: CYPROHEPTADINE 4 MG TABLET PO SCH ×2 (16:31→21:04)
[2020-07-25] MEDS: SENNA 8.6 MG TABLET PO SCH (21:03)
[2020-07-25] MEDS: ROSUVASTATIN 20 MG TABLET PO SCH (21:04)
[2020-07-25] MEDS: MELATONIN 3 MG TABLET PO PRN (21:04)
[2020-07-25] MEDS: INSULIN GLARGINE 100 UNIT/ML SUBCUT SCH (21:04)
[2020-07-26] MEDS: ALBUTEROL/IPRATROPIUM 3 ML NEB RESP TX SCH ×2 (00:03→07:13)
[2020-07-26] MEDS: POLYETHYLENE GLYCOL POWDER 17 GM PACK PO SCH ×3 (02:09→12:07)
[2020-07-26] MEDS: LACTULOSE 20 GM/30 ML UDCUP PO SCH ×2 (02:10→09:32)
[2020-07-26] MEDS: CEFEPIME 1,000 MG in SODIUM CHLORIDE 0.9% 100 ML IV SCH ×2 (03:45→09:33)
[2020-07-26 05:07] LABS: Basophils % 0.1 % (0.0-0.8); Eosinophils % 0.4 % (0.00-10.9); Hematocrit 35.8 VOL% (42.0-52.0); Hemoglobin 11.4 GM/DL (14.0-18.0); Immature Granulocytes % 0.4 %; Immature Granulocytes Absolute 0.03 #; Lymphocytes # 1.8 10*3/uL (1.4-4.0); Lymphocytes % 26.1 % (21.2-54.2); Mean Corpuscular HGB Conc 31.8 GM/DL (32-36); Mean Corpuscular Volume 92.7 FL (87-102); Mean Platelet Volume 9.2 FL (9.6-12.0); Monocytes % 8.8 % (1.7-12.7); Neutrophils % 64.2 % (38.7-73.9); Platelet Count 237 T/CUMM (130-400); Red Blood Count 3.86 MC/CUMM (3.8-5.5); Red Cell Distribution Width 13.4 % (9.3-17.3); White Blood Count 6.9 T/CUMM (4-12)
[2020-07-26 05:19] LABS: Blood Urea Nitrogen 40 MG/DL (7-18); Calcium 9.1 MG/DL (8.5-10.1); Carbon Dioxide 27 MMOL/L (21-32); Estimated Glom Filtration Rate 64 ML/MIN; Glucose 81 MG/DL (74-106); Osmolality,Calculated 283.7 MOS/KG (273-304); Potassium 3.6 MMOL/L (3.5-5.1); Sodium 138 MMOL/L (136-145)
[2020-07-26] MEDS: NEBIVOLOL 5 MG TABLET PO SCH (08:17)
[2020-07-26] MEDS: CYPROHEPTADINE 4 MG TABLET PO SCH (08:17)
[2020-07-26] MEDS: TAMSULOSIN 0.4 MG CAPSULE PO SCH (08:17)
[2020-07-26] MEDS: OLMESARTAN 20 MG TABLET PO SCH (08:17)
[2020-07-26] MEDS: ASPIRIN EC 81 MG TABLET PO SCH (08:17)
[2020-07-26] MEDS: predniSONE 20 MG TABLET PO SCH (08:17)
[2020-07-26] MEDS: AMIODARONE 200 MG TABLET PO SCH (08:18)
[2020-07-26] MEDS: INSULIN LISPRO 100 UNIT/ML SUBCUT SCH ×2 (08:18→12:07)
[2020-07-26] MEDS: FUROSEMIDE 40 MG/4 ML VIAL IV SCH (08:18)
[2020-07-26] MEDS: APIXABAN 5 MG TABLET PO SCH (08:18)
[2020-07-26] MEDS: LINACLOTIDE 145 MCG CAPSULE PO SCH (08:18)
[2020-07-26] MEDS: DOCUSATE SODIUM 100 MG CAPSULE PO SCH (08:18)
[2020-07-26] MEDS: MAGNESIUM CHLORIDE 64 MG TABLET PO SCH (08:18)
[2020-07-26] MEDS: ISOSORBIDE MONONITRATE 30 MG TABLET PO SCH (08:18)
[2020-07-26] MEDS: BUDESONIDE/FORMOTEROL 160-4.5 INHALER 6 GM INH SCH (08:19)
[2020-07-26] MEDS: GLIMEPIRIDE 4 MG TABLET PO SCH (08:19)
[2020-07-26] MEDS: metFORMIN 500 MG TABLET PO SCH (08:19)
[2020-07-26] MEDS ORDERED: metOLazone 5 MG TABLET PO SCH (09:00)
[2020-07-26 12:17] VITALS: BP 90/54
[2020-07-26] MEDS ORDERED: FUROSEMIDE 40 MG TABLET PO SCH (16:00)
[2020-07-26] MEDS ORDERED: CEFDINIR 300 MG CAPSULE PO SCH (21:00)
== END 2020-07-26 12:56 | disposition home or self-care (01) | DRG 280 ==
LOC: N.ED 20:22 → N.EDINP 07-21 01:57 → SUATTDRO 07-21 01:57 → N.TELEN 07-21 02:12
PROVIDERS: ADMIT Internal Medicine; ATTEND Hospitalist

== ENCOUNTER 2020-11-09 01:34 | Inpatient (IN) ==
[2020-11-09] MEDS ORDERED: ONDANSETRON 4 MG/2 ML VIAL IV STA (02:06)
[2020-11-09] MEDS ORDERED: ASPIRIN 325 MG TABLET PO STA (02:06)
[2020-11-09] MEDS ORDERED: MORPHINE 2 MG/1 ML SYRINGE IV STA (02:06)
[2020-11-09] MEDS ORDERED: NITROGLYCERIN 2% OINT 1 INCH/GM PACK TOP STA (02:06)
[2020-11-09 02:10] LABS: Basophils # 0.1 10*3/uL (0.0-0.2); Basophils % 0.7 % (0.0-0.8); Eosinophils # 0.3 10*3/uL (0.0-0.87); Eosinophils % 2.6 % (0.00-10.9); Hematocrit 39.7 VOL% (42.0-52.0); Hemoglobin 12.6 GM/DL (14.0-18.0); Immature Granulocytes % 0.4 %; Immature Granulocytes Absolute 0.04 #; Lymphocytes # 3.3 10*3/uL (1.4-4.0); Lymphocytes % 28.7 % (21.2-54.2); Mean Corpuscular HGB Conc 31.7 GM/DL (32-36); Mean Corpuscular Volume 91.9 FL (87-102); Mean Platelet Volume 9.4 FL (9.6-12.0); Monocytes % 6.9 % (1.7-12.7); Neutrophils % 60.7 % (38.7-73.9); Platelet Count 260 T/CUMM (130-400); Red Blood Count 4.32 MC/CUMM (3.8-5.5); Red Cell Distribution Width 14.6 % (9.3-17.3); White Blood Count 11.3 T/CUMM (4-12)
[2020-11-09] MEDS ORDERED: ALBUTEROL/IPRATROPIUM 3 ML NEB RESP TX STA (02:23)
[2020-11-09] MEDS ORDERED: FUROSEMIDE 40 MG/4 ML VIAL IV STA (02:23)
[2020-11-09] MEDS ORDERED: methylPREDNISolone SOD SUC 125 MG/2 ML VIAL IV STA (02:23)
[2020-11-09 02:40] LABS: Alanine Aminotransferase 26 U/L (16-61); Albumin 4.4 G/DL (3.4-5.0); Alkaline Phosphatase 58 U/L (45-117); Aspartate Amino Transferase 27 U/L (0-37); Bilirubin,Total < 0.39 MG/DL (0.20-1.00); Blood Urea Nitrogen 41 MG/DL (7-18); Calcium 9.4 MG/DL (8.5-10.1); Carbon Dioxide 22 MMOL/L (21-32); Estimated Glom Filtration Rate 30 ML/MIN; Glucose 264 MG/DL (74-106); Osmolality,Calculated 291.8 MOS/KG (273-304); Potassium 4.6 MMOL/L (3.5-5.1); Sodium 137 MMOL/L (136-145)
[2020-11-09 02:49] LABS: PT Patient Result 11.6 SECS (10.5-12.0)
[2020-11-09 03:04] LABS: Bacteria,Urine Occasional /HPF (Few); Bilirubin,Urine Negative (Negative); Blood, Urine Negative (Negative); Glucose,Urine (UA) 150 mg/dL (Negative); Hyaline Casts,Urine 27 /LPF (0-3); Ketones,Urine Negative (Negative); Mucus,Urine Occasional /LPF (Occasional); Nitrite,Urine Negative (Negative); Protein,Urine Negative; RBC,Urine 2 /HPF (0-4); Urine Appearance CLEAR (Clear); Urine Color Yellow (Yellow); Urine Specific Gravity 1.014 (1.001-1.035); Urine Urobilinogen < 2.0 EU/DL (0.2-1.0)
[2020-11-09] MEDS ORDERED: ENOXAPARIN 100 MG/ML SYRINGE SUBCUT STA (03:18)
[2020-11-09] MEDS ORDERED: ONDANSETRON 4 MG/2 ML VIAL IV PRN (04:54)
[2020-11-09] MEDS ORDERED: DEXTROSE 50% 25 GM/50 ML VIAL IV PRN (04:54)
[2020-11-09] MEDS ORDERED: GLUCAGON 1 MG VIAL IM PRN (04:54)
[2020-11-09] MEDS ORDERED: DOCUSATE SODIUM 100 MG CAPSULE PO PRN (04:54)
[2020-11-09] MEDS ORDERED: clonazePAM 0.5 MG TABLET PO PRN (05:11)
[2020-11-09] MEDS ORDERED: NITROGLYCERIN SL 0.4 MG TABLET SL PRN (05:11)
[2020-11-09] MEDS: INSULIN LISPRO 100 UNIT/ML SUBCUT SCH ×4 (07:38→21:13)
[2020-11-09] MEDS: ALBUTEROL/IPRATROPIUM 3 ML NEB RESP TX SCH ×2 (08:06→18:50)
[2020-11-09] MEDS ORDERED: ISOSORBIDE MONONITRATE 30 MG TABLET PO SCH (09:00)
[2020-11-09 09:55] LABS: Calcium 8.9 MG/DL (8.5-10.1); Osmolality,Calculated 293.5 MOS/KG (273-304); Potassium 4.2 MMOL/L (3.5-5.1)
[2020-11-09] MEDS: FUROSEMIDE 40 MG/4 ML VIAL IV SCH ×2 (10:06→15:05)
[2020-11-09] MEDS: predniSONE 20 MG TABLET PO SCH (10:06)
[2020-11-09] MEDS: AMIODARONE 200 MG TABLET PO SCH ×2 (10:07→20:17)
[2020-11-09] MEDS: NEBIVOLOL 5 MG TABLET PO SCH (10:07)
[2020-11-09] MEDS: APIXABAN 5 MG TABLET PO SCH ×2 (10:07→20:17)
[2020-11-09] MEDS: CETIRIZINE 10 MG TABLET PO SCH (10:07)
[2020-11-09] MEDS: ASPIRIN EC 81 MG TABLET PO SCH (10:07)
[2020-11-09] MEDS: MAGNESIUM CHLORIDE 64 MG TABLET PO SCH ×2 (10:07→20:17)
[2020-11-09] MEDS: BUDESONIDE/FORMOTEROL 160-4.5 INHALER 6 GM INH SCH ×2 (10:08→21:14)
[2020-11-09] MEDS: TAMSULOSIN 0.4 MG CAPSULE PO SCH ×2 (10:08→20:17)
[2020-11-09] MEDS: MORPHINE 2 MG/1 ML SYRINGE IV PRN ×2 (17:35→20:02)
[2020-11-09] MEDS: ROSUVASTATIN 20 MG TABLET PO SCH (20:17)
[2020-11-10] MEDS: ALBUTEROL/IPRATROPIUM 3 ML NEB RESP TX SCH ×5 (00:15→18:05)
[2020-11-10 04:57] LABS: Basophils % 0.2 % (0.0-0.8); Hematocrit 33.3 VOL% (42.0-52.0); Hemoglobin 10.9 GM/DL (14.0-18.0); Immature Granulocytes % 0.4 %; Immature Granulocytes Absolute 0.05 #; Lymphocytes # 1.3 10*3/uL (1.4-4.0); Lymphocytes % 10.7 % (21.2-54.2); Mean Corpuscular HGB Conc 32.7 GM/DL (32-36); Mean Corpuscular Volume 91.7 FL (87-102); Mean Platelet Volume 9.7 FL (9.6-12.0); Neutrophils % 81.7 % (38.7-73.9); Platelet Count 228 T/CUMM (130-400); Red Blood Count 3.63 MC/CUMM (3.8-5.5); Red Cell Distribution Width 14.6 % (9.3-17.3)
[2020-11-10 05:13] LABS: Calcium 8.4 MG/DL (8.5-10.1); Potassium 4.1 MMOL/L (3.5-5.1)
[2020-11-10] MEDS ORDERED: NITROGLYCERIN 2% OINT 1 INCH/GM PACK TOP PRN (05:55)
[2020-11-10] MEDS: INSULIN GLARGINE 100 UNIT/ML SUBCUT SCH ×2 (07:14→21:15)
[2020-11-10] MEDS: INSULIN LISPRO 100 UNIT/ML SUBCUT SCH ×4 (08:37→23:23)
[2020-11-10] MEDS: FUROSEMIDE 40 MG/4 ML VIAL IV SCH (08:37)
[2020-11-10] MEDS: NEBIVOLOL 5 MG TABLET PO SCH (08:37)
[2020-11-10] MEDS: ISOSORBIDE MONONITRATE 30 MG TABLET PO SCH ×2 (08:37→10:24)
[2020-11-10] MEDS: BUDESONIDE/FORMOTEROL 160-4.5 INHALER 6 GM INH SCH ×2 (09:22→21:15)
[2020-11-10] MEDS: MAGNESIUM CHLORIDE 64 MG TABLET PO SCH ×2 (09:23→21:15)
[2020-11-10] MEDS: RANOLAZINE 500 MG TABLET PO SCH ×2 (09:23→21:15)
[2020-11-10] MEDS: ASPIRIN EC 81 MG TABLET PO SCH (09:24)
[2020-11-10] MEDS: TAMSULOSIN 0.4 MG CAPSULE PO SCH ×2 (09:24→21:15)
[2020-11-10] MEDS: APIXABAN 5 MG TABLET PO SCH (09:24)
[2020-11-10] MEDS: CETIRIZINE 10 MG TABLET PO SCH (09:24)
[2020-11-10] MEDS: predniSONE 20 MG TABLET PO SCH (09:24)
[2020-11-10] MEDS: MORPHINE 2 MG/1 ML SYRINGE IV PRN ×2 (10:24→19:08)
[2020-11-10] MEDS: FUROSEMIDE 40 MG TABLET PO SCH (15:56)
[2020-11-10] MEDS: ROSUVASTATIN 20 MG TABLET PO SCH (21:15)
[2020-11-11] MEDS: ALBUTEROL/IPRATROPIUM 3 ML NEB RESP TX SCH ×4 (00:30→20:12)
[2020-11-11] MEDS: MORPHINE 2 MG/1 ML SYRINGE IV PRN ×3 (03:24→15:25)
[2020-11-11 04:53] LABS: Basophils % 0.2 % (0.0-0.8); Hematocrit 33.2 VOL% (42.0-52.0); Hemoglobin 10.8 GM/DL (14.0-18.0); Immature Granulocytes % 0.3 %; Immature Granulocytes Absolute 0.03 #; Lymphocytes # 1.1 10*3/uL (1.4-4.0); Lymphocytes % 10.2 % (21.2-54.2); Mean Corpuscular HGB Conc 32.5 GM/DL (32-36); Mean Corpuscular Volume 92.5 FL (87-102); Mean Platelet Volume 9.7 FL (9.6-12.0); Monocytes % 9.5 % (1.7-12.7); Neutrophils % 79.8 % (38.7-73.9); Platelet Count 225 T/CUMM (130-400); Red Blood Count 3.59 MC/CUMM (3.8-5.5); Red Cell Distribution Width 14.9 % (9.3-17.3); White Blood Count 10.3 T/CUMM (4-12)
[2020-11-11 05:31] LABS: Calcium 8.7 MG/DL (8.5-10.1); Osmolality,Calculated 294.3 MOS/KG (273-304); Potassium 3.8 MMOL/L (3.5-5.1)
[2020-11-11] MEDS: ISOSORBIDE MONONITRATE 30 MG TABLET PO SCH (08:50)
[2020-11-11] MEDS: BUDESONIDE/FORMOTEROL 160-4.5 INHALER 6 GM INH SCH (08:50)
[2020-11-11] MEDS: FUROSEMIDE 40 MG TABLET PO SCH ×2 (08:51→15:40)
[2020-11-11] MEDS: predniSONE 20 MG TABLET PO SCH (08:51)
[2020-11-11] MEDS: RANOLAZINE 500 MG TABLET PO SCH (08:51)
[2020-11-11] MEDS: MAGNESIUM CHLORIDE 64 MG TABLET PO SCH ×2 (08:51→21:47)
[2020-11-11] MEDS: ASPIRIN EC 81 MG TABLET PO SCH (08:51)
[2020-11-11] MEDS: CETIRIZINE 10 MG TABLET PO SCH (08:51)
[2020-11-11] MEDS: TAMSULOSIN 0.4 MG CAPSULE PO SCH ×2 (08:51→21:32)
[2020-11-11] MEDS ORDERED: NEBIVOLOL 10 MG TABLET PO SCH (09:00)
[2020-11-11] MEDS ORDERED: METOPROLOL TARTRATE 5 MG/5 ML VIAL IV ONE ×2 (09:04)
[2020-11-11] MEDS ORDERED: SODIUM CHLORIDE 0.45% 1,000 ML IV SCH (09:30)
[2020-11-11] MEDS: INSULIN LISPRO 100 UNIT/ML SUBCUT SCH ×4 (09:47→21:39)
[2020-11-11] MEDS ORDERED: AMIODARONE 200 MG TABLET PO ONE (09:50)
[2020-11-11] MEDS ORDERED: ENOXAPARIN 80 MG/0.8 ML SYRINGE SUBCUT SCH (10:30)
[2020-11-11] MEDS ORDERED: POTASSIUM CHLORIDE RIDER 10 MEQ/100 ML PREMIX IV PRN (10:36)
[2020-11-11] MEDS ORDERED: SODIUM CHLORIDE 0.9% 1,000 ML IV SCH (11:00)
[2020-11-11] MEDS ORDERED: CEFEPIME 1,000 MG VIAL IV SCH (11:30)
[2020-11-11] MEDS ORDERED: DIAZEPAM 5 MG TABLET PO ONE (11:30)
[2020-11-11] MEDS ORDERED: diphenhydrAMINE CAP 50 MG CAPSULE PO ONE (11:30)
[2020-11-11] MEDS ORDERED: diphenhydrAMINE CAP 25 MG CAPSULE ONE (11:42)
[2020-11-11] MEDS ORDERED: HYDROmorphone 2 MG/1 ML VIAL ONE (13:09)
[2020-11-11] MEDS ORDERED: DOPamine 800 MG/250 ML PREMIX IV ONE (13:22)
[2020-11-11] MEDS ORDERED: SUCCINYLCHOLINE 200 MG/10 ML VIAL ONE ×3 (13:22→15:01)
[2020-11-11] MEDS ORDERED: NOREPINEPHRINE 4 MG/4 ML VIAL IV ONE ×2 (13:43→16:49)
[2020-11-11] MEDS ORDERED: HEPARIN/NACL 0.9% 2 UNITS/ML 1,000 UNIT/500 ML BAG IV ONE (13:51)
[2020-11-11] MEDS ORDERED: PHENYLEPHRINE 1 MG/10 ML SYRINGE IV ONE ×2 (14:31→15:01)
[2020-11-11] MEDS ORDERED: LIDOCAINE 2% 5 ML VIAL ONE ×2 (14:31→15:02)
[2020-11-11] MEDS ORDERED: ETOMIDATE 40 MG/20 ML VIAL IV ONE ×2 (14:31→15:01)
[2020-11-11] MEDS ORDERED: PHENYLEPHRINE DRIP 40 MG/250 ML PREMIX IV ONE (14:51)
[2020-11-11] MEDS: ACETYLCYSTEINE 20% 800 MG/4 ML VIAL RESP TX SCH (14:53)
[2020-11-11] MEDS ORDERED: PHENYLEPHRINE DRIP 40 MG/250 ML PREMIX IV PRN (14:54)
[2020-11-11] MEDS ORDERED: NOREPINEPHRINE 8 MG in SODIUM CHLORIDE 0.9% 242 ML IV PRN (14:54)
[2020-11-11] MEDS ORDERED: DOPamine 800 MG/250 ML PREMIX IV PRN (14:54)
[2020-11-11] MEDS ORDERED: PHENYLEPHRINE 10 MG/1 ML VIAL IV ONE (15:01)
[2020-11-11] MEDS ORDERED: ROCURONIUM 50 MG/5 ML VIAL IV ONE (15:01)
[2020-11-11] MEDS ORDERED: SODIUM CHLORIDE 0.9% 100 ML IV ONE (15:01)
[2020-11-11] MEDS ORDERED: PHENYLEPHRINE INJ 160 MG in SODIUM CHLORIDE 0.9% 234 ML IV PRN (15:01)
[2020-11-11] MEDS ORDERED: SEVOFLURANE 1 UNIT/15 MINUTE INH ONE (15:02)
[2020-11-11] MEDS ORDERED: LACTATED RINGERS 1,000 ML IV ONE (15:15)
[2020-11-11] MEDS ORDERED: ALBUMIN 25% 25 GM/100 ML VIAL IV ONE (15:15)
[2020-11-11 15:20] LABS: ABG HCO3 16.3 MMOL/L (20-26); ABG Oxygen Saturation 87.8 % (95-100); ABG PCO2 31.2 MM HG (35-48); ABG PH 7.303 (7.35-7.45); ABG PO2 63.4 MM HG (80-95); ABG TCO2 14.1 MMOL/L (23-27)
[2020-11-11 15:22] LABS: Basophils % 0.1 % (0.0-0.8); Hematocrit 32.9 VOL% (42.0-52.0); Hemoglobin 10.3 GM/DL (14.0-18.0); Immature Granulocytes % 1.2 %; Immature Granulocytes Absolute 0.17 #; Lymphocytes # 1.3 10*3/uL (1.4-4.0); Lymphocytes % 9.4 % (21.2-54.2); Mean Corpuscular HGB Conc 31.3 GM/DL (32-36); Mean Corpuscular Volume 93.5 FL (87-102); Mean Platelet Volume 9.7 FL (9.6-12.0); Monocytes % 5.4 % (1.7-12.7); Neutrophils % 83.9 % (38.7-73.9); Platelet Count 262 T/CUMM (130-400); Red Blood Count 3.52 MC/CUMM (3.8-5.5); Red Cell Distribution Width 15.1 % (9.3-17.3)
[2020-11-11] MEDS: DOBUTamine 500 MG/250 ML PREMIX IV PRN (15:25)
[2020-11-11] MEDS ORDERED: DOCUSATE SODIUM 100 MG/10 ML UDCUP NG PRN (15:30)
[2020-11-11 15:38] LABS: Alanine Aminotransferase 52 U/L (16-61); Albumin 2.9 G/DL (3.4-5.0); Alkaline Phosphatase 48 U/L (45-117); Aspartate Amino Transferase 67 U/L (0-37); Blood Urea Nitrogen 56 MG/DL (7-18); Calcium 7.4 MG/DL (8.5-10.1); Carbon Dioxide 14 MMOL/L (21-32); Estimated Glom Filtration Rate 34 ML/MIN; Glucose 337 MG/DL (74-106); Osmolality,Calculated 292.5 MOS/KG (273-304); Potassium 5.2 MMOL/L (3.5-5.1); Sodium 132 MMOL/L (136-145)
[2020-11-11] MEDS: DOXYCYCLINE HYCLATE 100 MG CAPSULE PO SCH ×2 (15:40→21:32)
[2020-11-11] MEDS: HYDROCORTISONE 100 MG VIAL IV SCH ×2 (15:40→23:59)
[2020-11-11] MEDS: CEFEPIME 1,000 MG in SODIUM CHLORIDE 0.9% 100 ML IV SCH ×2 (15:43→23:20)
[2020-11-11] MEDS: MIDAZOLAM 100 MG in SODIUM CHLORIDE 0.9% 80 ML IV PRN (15:57)
[2020-11-11] MEDS ORDERED: SODIUM BICARBONATE 50 MEQ/50 ML VIAL IV ONE ×2 (16:16→21:05)
[2020-11-11] MEDS ORDERED: CISATRACURIUM 10 MG/5 ML VIAL IV ONE (16:52)
[2020-11-11] MEDS: NOREPINEPHRINE 16 MG in SODIUM CHLORIDE 0.9% 234 ML IV PRN (16:56)
[2020-11-11] MEDS ORDERED: SODIUM BICARB INJ 100 MEQ in DEXTROSE 5% 1,000 ML IV SCH ×2 (17:00→20:00)
[2020-11-11 17:09] LABS: CKMB % 4.2 %
[2020-11-11 17:13] LABS: High Sensitive Troponin I* 14439.3 ng/L (0-78)
[2020-11-11] MEDS: CISATRACURIUM 200 MG in SODIUM CHLORIDE 0.9% 180 ML IV PRN (17:18)
[2020-11-11 17:19] LABS: ABG Base Excess -7.3 MMOL/L (-2.5-2.5); ABG HCO3 18.4 MMOL/L (20-26); ABG Oxygen Saturation 88.6 % (95-100); ABG PCO2 44.9 MM HG (35-48); ABG PH 7.252 (7.35-7.45); ABG PO2 68.1 MM HG (80-95); ABG TCO2 18.4 MMOL/L (23-27)
[2020-11-11] MEDS ORDERED: SODIUM CHLORIDE 0.9% 1,000 ML IV ONE (17:59)
[2020-11-11 18:52] LABS: ABG Base Excess -7.7 MMOL/L (-2.5-2.5); ABG PCO2 41.6 MM HG (35-48); ABG PH 7.265 (7.35-7.45); ABG PO2 66.1 MM HG (80-95); ABG TCO2 17.6 MMOL/L (23-27)
[2020-11-11 20:13] LABS: ABG Base Excess -7.8 MMOL/L (-2.5-2.5); ABG Oxygen Saturation 90.2 % (95-100); ABG PCO2 44.4 MM HG (35-48); ABG PH 7.246 (7.35-7.45); ABG PO2 72.7 MM HG (80-95); ABG TCO2 17.9 MMOL/L (23-27)
[2020-11-11] MEDS: LINEZOLID INJ 600 MG/300 ML PREMIX IV SCH (20:46)
[2020-11-11] MEDS: ROSUVASTATIN 20 MG TABLET PO SCH (21:32)
[2020-11-11] MEDS: INSULIN GLARGINE 100 UNIT/ML SUBCUT SCH (21:37)
[2020-11-11] MEDS: AMIODARONE 200 MG TABLET PO SCH (21:46)
[2020-11-12] MEDS: INSULIN LISPRO 100 UNIT/ML SUBCUT SCH ×4 (00:05→21:26)
[2020-11-12] MEDS: DOBUTamine 500 MG/250 ML PREMIX IV PRN ×3 (01:33→19:36)
[2020-11-12] MEDS: ALBUTEROL/IPRATROPIUM 3 ML NEB RESP TX SCH ×4 (01:57→19:41)
[2020-11-12] MEDS: ACETYLCYSTEINE 20% 800 MG/4 ML VIAL RESP TX SCH ×3 (01:57→15:09)
[2020-11-12] MEDS: NOREPINEPHRINE 16 MG in SODIUM CHLORIDE 0.9% 234 ML IV PRN ×2 (02:01→13:27)
[2020-11-12] MEDS ORDERED: INSULIN REGULAR 100 UNIT/ML IV ONE (03:00)
[2020-11-12] MEDS: CISATRACURIUM 200 MG in SODIUM CHLORIDE 0.9% 180 ML IV PRN ×4 (03:33→18:34)
[2020-11-12 03:47] LABS: Basophils % 0.1 % (0.0-0.8); Hematocrit 33.3 VOL% (42.0-52.0); Hemoglobin 10.5 GM/DL (14.0-18.0); Immature Granulocytes % 0.8 %; Immature Granulocytes Absolute 0.07 #; Lymphocytes # 0.4 10*3/uL (1.4-4.0); Lymphocytes % 4.1 % (21.2-54.2); Mean Corpuscular HGB Conc 31.5 GM/DL (32-36); Mean Corpuscular Volume 92.5 FL (87-102); Mean Platelet Volume 10.3 FL (9.6-12.0); Monocytes % 2.5 % (1.7-12.7); Neutrophils % 92.5 % (38.7-73.9); Platelet Count 166 T/CUMM (130-400); Red Cell Distribution Width 15.1 % (9.3-17.3); White Blood Count 8.6 T/CUMM (4-12)
[2020-11-12] MEDS ORDERED: INSULIN LISPRO 100 UNIT/ML SUBCUT SCH (04:00)
[2020-11-12 04:14] LABS: Calcium 6.7 MG/DL (8.5-10.1); Osmolality,Calculated 303.2 MOS/KG (273-304); Potassium 5.2 MMOL/L (3.5-5.1)
[2020-11-12 04:23] LABS: Albumin 2.7 G/DL (3.4-5.0); Bilirubin,Direct 0.52 MG/DL (0.0-0.20); Bilirubin,Indirect 0.5 MG/DL (0.0-1.0); Total Protein 5.5 G/DL (6.4-8.2)
[2020-11-12 05:30] LABS: Lymphocytes 8 % (20-55); Segmented Neutrophils 92 % (50-85); Total Cells Counted 100
[2020-11-12 05:31] LABS: Polychromasia 1+
[2020-11-12 05:32] LABS: Platelet Estimate Decreased
[2020-11-12 05:53] LABS: ABG Base Excess -4.1 MMOL/L (-2.5-2.5); ABG Oxygen Saturation 98.3 % (95-100); ABG PCO2 46.8 MM HG (35-48); ABG PH 7.292 (7.35-7.45); ABG TCO2 20.5 MMOL/L (23-27)
[2020-11-12] MEDS: SODIUM BICARB INJ 100 MEQ in SODIUM CHLORIDE 0.45% 1,000 ML IV SCH ×2 (07:00→17:21)
[2020-11-12] MEDS: BUDESONIDE/FORMOTEROL 160-4.5 INHALER 6 GM INH SCH ×2 (07:05→08:58)
[2020-11-12] MEDS: LINEZOLID INJ 600 MG/300 ML PREMIX IV SCH ×2 (08:09→21:28)
[2020-11-12] MEDS: HYDROCORTISONE 100 MG VIAL IV SCH ×3 (08:10→23:59)
[2020-11-12] MEDS: CEFEPIME 1,000 MG in SODIUM CHLORIDE 0.9% 100 ML IV SCH ×3 (08:10→23:45)
[2020-11-12] MEDS: PANTOPRAZOLE 40 MG VIAL IV SCH (08:11)
[2020-11-12] MEDS: DOXYCYCLINE HYCLATE 100 MG CAPSULE PO SCH ×2 (08:12→21:06)
[2020-11-12] MEDS: AMIODARONE 200 MG TABLET PO SCH ×2 (08:12→21:27)
[2020-11-12] MEDS: ISOSORBIDE MONONITRATE 30 MG TABLET PO SCH (08:12)
[2020-11-12] MEDS: ASPIRIN CHEW 81 MG TABLET PO SCH (08:12)
[2020-11-12] MEDS: TAMSULOSIN 0.4 MG CAPSULE PO SCH ×2 (08:12→21:06)
[2020-11-12] MEDS: CETIRIZINE 10 MG TABLET PO SCH (08:13)
[2020-11-12] MEDS: MAGNESIUM CHLORIDE 64 MG TABLET PO SCH ×2 (08:58→21:07)
[2020-11-12] MEDS: MIDAZOLAM 100 MG in SODIUM CHLORIDE 0.9% 80 ML IV PRN (12:00)
[2020-11-12] MEDS: SODIUM BICARB INJ 150 MEQ in STERILE WATER INJ 850 ML IV SCH (17:12)
[2020-11-12] MEDS: ROSUVASTATIN 20 MG TABLET PO SCH (21:06)
[2020-11-12] MEDS: INSULIN GLARGINE 100 UNIT/ML SUBCUT SCH (21:06)
[2020-11-13] MEDS: CISATRACURIUM 200 MG in SODIUM CHLORIDE 0.9% 180 ML IV PRN ×2 (00:19→05:48)
[2020-11-13] MEDS: INSULIN LISPRO 100 UNIT/ML SUBCUT SCH ×6 (00:48→21:18)
[2020-11-13] MEDS: BUDESONIDE/FORMOTEROL 160-4.5 INHALER 6 GM INH SCH ×3 (00:51→21:19)
[2020-11-13] MEDS: ACETYLCYSTEINE 20% 800 MG/4 ML VIAL RESP TX SCH ×3 (01:02→14:02)
[2020-11-13] MEDS: ALBUTEROL/IPRATROPIUM 3 ML NEB RESP TX SCH ×4 (01:02→19:34)
[2020-11-13] MEDS: SODIUM BICARB INJ 150 MEQ in STERILE WATER INJ 850 ML IV SCH ×2 (03:13→03:59)
[2020-11-13 04:25] LABS: ABG Base Excess 1.9 MMOL/L (-2.5-2.5); ABG HCO3 26.1 MMOL/L (20-26); ABG Oxygen Saturation 98.8 % (95-100); ABG PH 7.419 (7.35-7.45); ABG TCO2 23.5 MMOL/L (23-27)
[2020-11-13 04:46] LABS: Basophils % 0.1 % (0.0-0.8); Hemoglobin 9.1 GM/DL (14.0-18.0); Immature Granulocytes % 0.8 %; Immature Granulocytes Absolute 0.06 #; Lymphocytes # 0.3 10*3/uL (1.4-4.0); Lymphocytes % 3.6 % (21.2-54.2); Mean Corpuscular HGB Conc 31.4 GM/DL (32-36); Mean Corpuscular Volume 93.5 FL (87-102); Mean Platelet Volume 10.3 FL (9.6-12.0); Neutrophils % 90.5 % (38.7-73.9); Platelet Count 128 T/CUMM (130-400); Red Cell Distribution Width 14.9 % (9.3-17.3); White Blood Count 7.8 T/CUMM (4-12)
[2020-11-13 04:58] LABS: Calcium 6.7 MG/DL (8.5-10.1); Potassium 4.2 MMOL/L (3.5-5.1)
[2020-11-13] MEDS: MIDAZOLAM 100 MG in SODIUM CHLORIDE 0.9% 80 ML IV PRN ×2 (06:06→19:31)
[2020-11-13] MEDS: DOBUTamine 500 MG/250 ML PREMIX IV PRN ×2 (06:36→16:03)
[2020-11-13] MEDS: ASPIRIN CHEW 81 MG TABLET PO SCH (08:46)
[2020-11-13] MEDS: DOXYCYCLINE HYCLATE 100 MG CAPSULE PO SCH ×2 (08:46→21:16)
[2020-11-13] MEDS: AMIODARONE 200 MG TABLET PO SCH ×2 (08:47→21:19)
[2020-11-13] MEDS: TAMSULOSIN 0.4 MG CAPSULE PO SCH ×2 (08:47→21:18)
[2020-11-13] MEDS: PANTOPRAZOLE 40 MG VIAL IV SCH (08:47)
[2020-11-13] MEDS: HYDROCORTISONE 100 MG VIAL IV SCH ×2 (08:47→15:47)
[2020-11-13] MEDS: ISOSORBIDE MONONITRATE 30 MG TABLET PO SCH (08:47)
[2020-11-13] MEDS: CETIRIZINE 10 MG TABLET PO SCH (08:47)
[2020-11-13] MEDS: LINEZOLID INJ 600 MG/300 ML PREMIX IV SCH ×2 (08:48→21:20)
[2020-11-13] MEDS: CEFEPIME 1,000 MG in SODIUM CHLORIDE 0.9% 100 ML IV SCH ×2 (08:48→15:46)
[2020-11-13 08:56] LABS: Anisocytosis 2+; Band Neutrophils 8 % (0-10); Burr Cells Few; Lymphocytes 3 % (20-55); Macrocytosis Slight; Ovalocytes Few; Platelet Estimate Adequate; Segmented Neutrophils 85 % (50-85); Total Cells Counted 100
[2020-11-13] MEDS: MAGNESIUM CHLORIDE 64 MG TABLET PO SCH ×2 (09:35→21:19)
[2020-11-13 11:50] LABS: ABG Base Excess 2.4 MMOL/L (-2.5-2.5); ABG HCO3 26.4 MMOL/L (20-26); ABG Oxygen Saturation 90.4 % (95-100); ABG PCO2 40.9 MM HG (35-48); ABG PH 7.426 (7.35-7.45); ABG PO2 60.8 MM HG (80-95); ABG TCO2 24.6 MMOL/L (23-27)
[2020-11-13] MEDS ORDERED: SODIUM BICARB INJ 150 MEQ in STERILE WATER INJ 1,000 ML IV SCH (13:00)
[2020-11-13] MEDS: MORPHINE 2 MG/1 ML SYRINGE IV PRN ×2 (16:50→22:45)
[2020-11-13] MEDS: INSULIN GLARGINE 100 UNIT/ML SUBCUT SCH (21:15)
[2020-11-13] MEDS: ROSUVASTATIN 20 MG TABLET PO SCH (21:16)
[2020-11-14] MEDS: CEFEPIME 1,000 MG in SODIUM CHLORIDE 0.9% 100 ML IV SCH ×2 (00:21→08:35)
[2020-11-14] MEDS: HYDROCORTISONE 100 MG VIAL IV SCH ×3 (00:21→15:43)
[2020-11-14] MEDS: ALBUTEROL/IPRATROPIUM 3 ML NEB RESP TX SCH ×5 (00:38→23:20)
[2020-11-14] MEDS: ACETYLCYSTEINE 20% 800 MG/4 ML VIAL RESP TX SCH ×4 (00:38→23:20)
[2020-11-14] MEDS: INSULIN LISPRO 100 UNIT/ML SUBCUT SCH ×6 (00:54→21:09)
[2020-11-14] MEDS: DOBUTamine 500 MG/250 ML PREMIX IV PRN ×3 (01:41→22:23)
[2020-11-14 04:54] LABS: ABG Base Excess 1.4 MMOL/L (-2.5-2.5); ABG HCO3 25.7 MMOL/L (20-26); ABG Oxygen Saturation 98.7 % (95-100); ABG TCO2 23.8 MMOL/L (23-27)
[2020-11-14 05:07] LABS: Eosinophils % 0.3 % (0.00-10.9); Hematocrit 26.2 VOL% (42.0-52.0); Hemoglobin 8.3 GM/DL (14.0-18.0); Immature Granulocytes % 0.5 %; Immature Granulocytes Absolute 0.03 #; Lymphocytes # 0.3 10*3/uL (1.4-4.0); Lymphocytes % 4.2 % (21.2-54.2); Mean Corpuscular HGB Conc 31.7 GM/DL (32-36); Mean Corpuscular Volume 92.6 FL (87-102); Mean Platelet Volume 10.4 FL (9.6-12.0); Monocytes % 7.7 % (1.7-12.7); Neutrophils % 87.3 % (38.7-73.9); Platelet Count 122 T/CUMM (130-400); Red Blood Count 2.83 MC/CUMM (3.8-5.5); Red Cell Distribution Width 14.9 % (9.3-17.3); White Blood Count 6.5 T/CUMM (4-12)
[2020-11-14] MEDS: MIDAZOLAM 100 MG in SODIUM CHLORIDE 0.9% 80 ML IV PRN ×2 (05:19→15:45)
[2020-11-14 05:20] LABS: Calcium 7.1 MG/DL (8.5-10.1); Potassium 3.9 MMOL/L (3.5-5.1)
[2020-11-14 05:45] LABS: Albumin 2.1 G/DL (3.4-5.0); Bilirubin,Total 0.7 MG/DL (0.20-1.00); Calcium 6.7 MG/DL (8.5-10.1); Osmolality,Calculated 299.7 MOS/KG (273-304); Potassium 3.9 MMOL/L (3.5-5.1)
[2020-11-14 05:58] LABS: Band Neutrophils 11 % (0-10); Lymphocytes 5 % (20-55); Platelet Estimate Adequate; Segmented Neutrophils 75 % (50-85); Total Cells Counted 100
[2020-11-14 05:59] LABS: Anisocytosis 1+; Macrocytosis 1+
[2020-11-14] MEDS: PANTOPRAZOLE 40 MG VIAL IV SCH (08:28)
[2020-11-14] MEDS: ASPIRIN CHEW 81 MG TABLET PO SCH (08:29)
[2020-11-14] MEDS: ISOSORBIDE MONONITRATE 30 MG TABLET PO SCH (08:29)
[2020-11-14] MEDS: CETIRIZINE 10 MG TABLET PO SCH (08:29)
[2020-11-14] MEDS: AMIODARONE 200 MG TABLET PO SCH ×2 (08:29→21:11)
[2020-11-14] MEDS: MAGNESIUM CHLORIDE 64 MG TABLET PO SCH ×2 (08:29→21:11)
[2020-11-14] MEDS: LINEZOLID INJ 600 MG/300 ML PREMIX IV SCH ×2 (08:29→21:12)
[2020-11-14] MEDS: DOXYCYCLINE HYCLATE 100 MG CAPSULE PO SCH ×2 (08:29→21:11)
[2020-11-14] MEDS: BUDESONIDE/FORMOTEROL 160-4.5 INHALER 6 GM INH SCH ×2 (08:30→21:12)
[2020-11-14] MEDS: MORPHINE 2 MG/1 ML SYRINGE IV PRN (13:18)
[2020-11-14] MEDS: INSULIN GLARGINE 100 UNIT/ML SUBCUT SCH (21:10)
[2020-11-14] MEDS: ROSUVASTATIN 20 MG TABLET PO SCH (21:11)
[2020-11-15] MEDS: HYDROCORTISONE 100 MG VIAL IV SCH ×3 (00:18→15:20)
[2020-11-15] MEDS: INSULIN LISPRO 100 UNIT/ML SUBCUT SCH ×6 (00:18→21:22)
[2020-11-15] MEDS: MIDAZOLAM 100 MG in SODIUM CHLORIDE 0.9% 80 ML IV PRN ×2 (01:41→22:39)
[2020-11-15 03:58] LABS: ABG Base Excess -0.9 MMOL/L (-2.5-2.5); ABG HCO3 23.6 MMOL/L (20-26); ABG PH 7.417 (7.35-7.45); ABG TCO2 21.2 MMOL/L (23-27)
[2020-11-15 04:18] LABS: Calcium 7.1 MG/DL (8.5-10.1); Osmolality,Calculated 303.2 MOS/KG (273-304); Potassium 4.2 MMOL/L (3.5-5.1)
[2020-11-15 04:22] LABS: Hematocrit 26.4 VOL% (42.0-52.0); Hemoglobin 8.5 GM/DL (14.0-18.0); Immature Granulocytes % 0.6 %; Immature Granulocytes Absolute 0.04 #; Lymphocytes # 0.3 10*3/uL (1.4-4.0); Mean Corpuscular HGB Conc 32.2 GM/DL (32-36); Mean Corpuscular Volume 91.3 FL (87-102); Mean Platelet Volume 10.1 FL (9.6-12.0); Monocytes % 5.9 % (1.7-12.7); Neutrophils % 89.5 % (38.7-73.9); Platelet Count 118 T/CUMM (130-400); Red Blood Count 2.89 MC/CUMM (3.8-5.5); Red Cell Distribution Width 14.8 % (9.3-17.3); White Blood Count 6.4 T/CUMM (4-12)
[2020-11-15 04:44] LABS: Lymphocytes 1 % (20-55); Segmented Neutrophils 96 % (50-85); Total Cells Counted 100
[2020-11-15 04:45] LABS: Hypochromasia 1+
[2020-11-15 04:46] LABS: Microcytosis Slight
[2020-11-15] MEDS: ACETYLCYSTEINE 20% 800 MG/4 ML VIAL RESP TX SCH ×2 (07:18→16:53)
[2020-11-15] MEDS: ALBUTEROL/IPRATROPIUM 3 ML NEB RESP TX SCH ×3 (07:18→18:33)
[2020-11-15] MEDS: PANTOPRAZOLE 40 MG VIAL IV SCH (08:18)
[2020-11-15] MEDS: MAGNESIUM CHLORIDE 64 MG TABLET PO SCH ×2 (08:19→21:23)
[2020-11-15] MEDS: ASPIRIN CHEW 81 MG TABLET PO SCH (08:19)
[2020-11-15] MEDS: ISOSORBIDE MONONITRATE 30 MG TABLET PO SCH (08:19)
[2020-11-15] MEDS: CETIRIZINE 10 MG TABLET PO SCH (08:19)
[2020-11-15] MEDS: DOXYCYCLINE HYCLATE 100 MG CAPSULE PO SCH ×2 (08:19→21:24)
[2020-11-15] MEDS: LINEZOLID INJ 600 MG/300 ML PREMIX IV SCH ×2 (08:20→21:24)
[2020-11-15] MEDS: CEFEPIME 1,000 MG in SODIUM CHLORIDE 0.9% 100 ML IV SCH (08:20)
[2020-11-15] MEDS: AMIODARONE 200 MG TABLET PO SCH ×2 (08:20→21:23)
[2020-11-15] MEDS: BUDESONIDE/FORMOTEROL 160-4.5 INHALER 6 GM INH SCH ×2 (08:21→21:24)
[2020-11-15] MEDS: DOBUTamine 500 MG/250 ML PREMIX IV PRN (11:36)
[2020-11-15] MEDS: MORPHINE 2 MG/1 ML SYRINGE IV PRN (13:53)
[2020-11-15] MEDS: ROSUVASTATIN 20 MG TABLET PO SCH (21:23)
[2020-11-15] MEDS: INSULIN GLARGINE 100 UNIT/ML SUBCUT SCH (21:24)
[2020-11-16] MEDS: HYDROCORTISONE 100 MG VIAL IV SCH ×3 (00:03→16:13)
[2020-11-16] MEDS: INSULIN LISPRO 100 UNIT/ML SUBCUT SCH ×6 (00:08→20:34)
[2020-11-16] MEDS: ALBUTEROL/IPRATROPIUM 3 ML NEB RESP TX SCH ×4 (01:49→19:14)
[2020-11-16] MEDS: ACETYLCYSTEINE 20% 800 MG/4 ML VIAL RESP TX SCH ×3 (01:49→14:00)
[2020-11-16 04:36] LABS: ABG Base Excess -1.8 MMOL/L (-2.5-2.5); ABG HCO3 22.9 MMOL/L (20-26); ABG Oxygen Saturation 99.1 % (95-100); ABG PH 7.403 (7.35-7.45); ABG TCO2 19.8 MMOL/L (23-27)
[2020-11-16 04:38] LABS: Hematocrit 26.3 VOL% (42.0-52.0); Hemoglobin 8.5 GM/DL (14.0-18.0); Immature Granulocytes % 0.5 %; Immature Granulocytes Absolute 0.03 #; Lymphocytes # 0.3 10*3/uL (1.4-4.0); Lymphocytes % 3.9 % (21.2-54.2); Mean Corpuscular HGB Conc 32.3 GM/DL (32-36); Mean Corpuscular Volume 91.6 FL (87-102); Mean Platelet Volume 10.3 FL (9.6-12.0); Monocytes % 7.3 % (1.7-12.7); NRBC # 0.02 10*3/uL; Neutrophils % 88.3 % (38.7-73.9); Platelet Count 130 T/CUMM (130-400); Red Blood Count 2.87 MC/CUMM (3.8-5.5); Red Cell Distribution Width 14.7 % (9.3-17.3); White Blood Count 6.6 T/CUMM (4-12)
[2020-11-16] MEDS: MORPHINE 2 MG/1 ML SYRINGE IV PRN (04:45)
[2020-11-16 04:58] LABS: Calcium 7.8 MG/DL (8.5-10.1); Osmolality,Calculated 313.2 MOS/KG (273-304); Potassium 3.8 MMOL/L (3.5-5.1)
[2020-11-16 05:06] LABS: Hypochromasia 1+; Lymphocytes 5 % (20-55); Microcytosis 1+; Nucleated Red Blood Cells 1 (0-5); Platelet Estimate Normal; Segmented Neutrophils 85 % (50-85); Total Cells Counted 100
[2020-11-16] MEDS: PANTOPRAZOLE 40 MG VIAL IV SCH (08:22)
[2020-11-16] MEDS: CEFEPIME 1,000 MG in SODIUM CHLORIDE 0.9% 100 ML IV SCH (08:23)
[2020-11-16] MEDS: LINEZOLID INJ 600 MG/300 ML PREMIX IV SCH ×2 (08:23→20:34)
[2020-11-16] MEDS: DOXYCYCLINE HYCLATE 100 MG CAPSULE PO SCH (08:24)
[2020-11-16] MEDS: ISOSORBIDE MONONITRATE 30 MG TABLET PO SCH (08:25)
[2020-11-16] MEDS: AMIODARONE 200 MG TABLET PO SCH ×2 (08:25→20:38)
[2020-11-16] MEDS: ASPIRIN CHEW 81 MG TABLET PO SCH (08:25)
[2020-11-16] MEDS: CETIRIZINE 10 MG TABLET PO SCH (08:25)
[2020-11-16] MEDS: MAGNESIUM CHLORIDE 64 MG TABLET PO SCH ×2 (09:24→20:38)
[2020-11-16] MEDS: BUDESONIDE/FORMOTEROL 160-4.5 INHALER 6 GM INH SCH ×2 (09:24→20:01)
[2020-11-16] MEDS: INSULIN GLARGINE 100 UNIT/ML SUBCUT SCH (20:20)
[2020-11-16] MEDS: ROSUVASTATIN 20 MG TABLET PO SCH (20:38)
[2020-11-17] MEDS: ALBUTEROL/IPRATROPIUM 3 ML NEB RESP TX SCH ×4 (00:04→19:27)
[2020-11-17] MEDS: ACETYLCYSTEINE 20% 800 MG/4 ML VIAL RESP TX SCH ×2 (00:04→06:50)
[2020-11-17] MEDS: HYDROCORTISONE 100 MG VIAL IV SCH ×3 (00:09→16:24)
[2020-11-17] MEDS: INSULIN LISPRO 100 UNIT/ML SUBCUT SCH ×6 (00:09→20:44)
[2020-11-17 04:41] LABS: ABG Base Excess -0.7 MMOL/L (-2.5-2.5); ABG HCO3 23.8 MMOL/L (20-26); ABG Oxygen Saturation 96.1 % (95-100); ABG PCO2 33.7 MM HG (35-48); ABG PH 7.442 (7.35-7.45); ABG PO2 82.3 MM HG (80-95)
[2020-11-17 04:43] LABS: Hematocrit 27.5 VOL% (42.0-52.0); Hemoglobin 8.8 GM/DL (14.0-18.0); Immature Granulocytes % 0.9 %; Immature Granulocytes Absolute 0.06 #; Lymphocytes # 0.4 10*3/uL (1.4-4.0); Lymphocytes % 5.7 % (21.2-54.2); Mean Corpuscular Volume 91.4 FL (87-102); Mean Platelet Volume 9.8 FL (9.6-12.0); Monocytes % 7.8 % (1.7-12.7); Neutrophils % 85.6 % (38.7-73.9); Platelet Count 132 T/CUMM (130-400); Red Blood Count 3.01 MC/CUMM (3.8-5.5); Red Cell Distribution Width 14.8 % (9.3-17.3); White Blood Count 6.7 T/CUMM (4-12)
[2020-11-17 05:16] LABS: Calcium 7.8 MG/DL (8.5-10.1); Osmolality,Calculated 321.8 MOS/KG (273-304); Potassium 3.6 MMOL/L (3.5-5.1)
[2020-11-17] MEDS: ISOSORBIDE MONONITRATE 30 MG TABLET PO SCH (08:23)
[2020-11-17] MEDS: ASPIRIN CHEW 81 MG TABLET PO SCH (08:23)
[2020-11-17] MEDS: AMIODARONE 200 MG TABLET PER TUBE SCH ×2 (08:24→20:45)
[2020-11-17] MEDS: CETIRIZINE 10 MG TABLET PO SCH (08:24)
[2020-11-17] MEDS: PANTOPRAZOLE 40 MG VIAL IV SCH (08:24)
[2020-11-17] MEDS: CEFEPIME 1,000 MG in SODIUM CHLORIDE 0.9% 100 ML IV SCH (08:25)
[2020-11-17] MEDS: MAGNESIUM CHLORIDE 64 MG TABLET PO SCH ×2 (08:39→20:45)
[2020-11-17] MEDS: BUDESONIDE/FORMOTEROL 160-4.5 INHALER 6 GM INH SCH ×2 (08:39→20:45)
[2020-11-17] MEDS: INSULIN GLARGINE 100 UNIT/ML SUBCUT SCH (20:44)
[2020-11-17] MEDS: ROSUVASTATIN 20 MG TABLET PO SCH (20:45)
[2020-11-18] MEDS: ALBUTEROL/IPRATROPIUM 3 ML NEB RESP TX SCH ×3 (00:03→18:50)
[2020-11-18] MEDS: HYDROCORTISONE 100 MG VIAL IV SCH ×3 (00:34→16:46)
[2020-11-18] MEDS: INSULIN LISPRO 100 UNIT/ML SUBCUT SCH ×6 (00:35→21:25)
[2020-11-18 04:10] LABS: Basophils % 0.1 % (0.0-0.8); Eosinophils % 0.1 % (0.00-10.9); Hematocrit 28.4 VOL% (42.0-52.0); Hemoglobin 9.2 GM/DL (14.0-18.0); Immature Granulocytes % 0.4 %; Immature Granulocytes Absolute 0.04 #; Lymphocytes # 0.4 10*3/uL (1.4-4.0); Lymphocytes % 3.6 % (21.2-54.2); Mean Corpuscular HGB Conc 32.4 GM/DL (32-36); Mean Platelet Volume 10.1 FL (9.6-12.0); Monocytes % 7.1 % (1.7-12.7); Neutrophils % 88.7 % (38.7-73.9); Platelet Count 149 T/CUMM (130-400); Red Blood Count 3.12 MC/CUMM (3.8-5.5); Red Cell Distribution Width 14.8 % (9.3-17.3); White Blood Count 9.9 T/CUMM (4-12)
[2020-11-18 04:12] LABS: ABG Base Excess 0.6 MMOL/L (-2.5-2.5); ABG Oxygen Saturation 98.8 % (95-100); ABG PCO2 34.5 MM HG (35-48); ABG PH 7.454 (7.35-7.45); ABG TCO2 22.1 MMOL/L (23-27)
[2020-11-18 04:35] LABS: Hypochromasia 1+; Lymphocytes 5 % (20-55); Microcytosis 1+; Platelet Estimate Adequate; Segmented Neutrophils 93 % (50-85); Total Cells Counted 100
[2020-11-18 04:37] LABS: Potassium 3.3 MMOL/L (3.5-5.1)
[2020-11-18] MEDS: CEFEPIME 1,000 MG in SODIUM CHLORIDE 0.9% 100 ML IV SCH (08:22)
[2020-11-18] MEDS: PANTOPRAZOLE 40 MG VIAL IV SCH (08:22)
[2020-11-18] MEDS: ASPIRIN CHEW 81 MG TABLET PO SCH (08:22)
[2020-11-18] MEDS: BUDESONIDE/FORMOTEROL 160-4.5 INHALER 6 GM INH SCH ×2 (08:23→21:25)
[2020-11-18] MEDS: MAGNESIUM CHLORIDE 64 MG TABLET PO SCH ×2 (08:23→21:25)
[2020-11-18] MEDS: CETIRIZINE 10 MG TABLET PO SCH (08:23)
[2020-11-18] MEDS: AMIODARONE 200 MG TABLET PER TUBE SCH ×2 (08:23→21:24)
[2020-11-18] MEDS: MIDAZOLAM 100 MG in SODIUM CHLORIDE 0.9% 80 ML IV PRN (13:16)
[2020-11-18] MEDS: INSULIN GLARGINE 100 UNIT/ML SUBCUT SCH (21:24)
[2020-11-18] MEDS: ROSUVASTATIN 20 MG TABLET PO SCH (21:24)
[2020-11-19] MEDS: ALBUTEROL/IPRATROPIUM 3 ML NEB RESP TX SCH ×4 (00:09→18:50)
[2020-11-19] MEDS: INSULIN LISPRO 100 UNIT/ML SUBCUT SCH ×6 (00:51→21:18)
[2020-11-19] MEDS: HYDROCORTISONE 100 MG VIAL IV SCH ×3 (00:51→17:42)
[2020-11-19 04:29] LABS: ABG Base Excess 1.9 MMOL/L (-2.5-2.5); ABG HCO3 26.1 MMOL/L (20-26); ABG Oxygen Saturation 98.5 % (95-100); ABG PCO2 35.5 MM HG (35-48); ABG PH 7.464 (7.35-7.45); ABG TCO2 23.3 MMOL/L (23-27)
[2020-11-19 04:44] LABS: Calcium 8.1 MG/DL (8.5-10.1); Osmolality,Calculated 327.1 MOS/KG (273-304); Potassium 3.1 MMOL/L (3.5-5.1)
[2020-11-19 05:02] LABS: Basophils % 0.1 % (0.0-0.8); Eosinophils % 0.2 % (0.00-10.9); Hematocrit 29.4 VOL% (42.0-52.0); Hemoglobin 9.2 GM/DL (14.0-18.0); Immature Granulocytes % 0.7 %; Immature Granulocytes Absolute 0.08 #; Lymphocytes # 0.6 10*3/uL (1.4-4.0); Mean Corpuscular HGB Conc 31.3 GM/DL (32-36); Mean Corpuscular Volume 93.6 FL (87-102); Mean Platelet Volume 9.7 FL (9.6-12.0); Monocytes % 7.4 % (1.7-12.7); Neutrophils % 86.6 % (38.7-73.9); Platelet Count 137 T/CUMM (130-400); Red Blood Count 3.14 MC/CUMM (3.8-5.5); Red Cell Distribution Width 14.9 % (9.3-17.3); White Blood Count 11.5 T/CUMM (4-12)
[2020-11-19] MEDS ORDERED: POTASSIUM CHLORIDE 20 MEQ TABLET PO SCH (09:00)
[2020-11-19] MEDS: BUDESONIDE/FORMOTEROL 160-4.5 INHALER 6 GM INH SCH ×2 (09:39→21:20)
[2020-11-19] MEDS: MAGNESIUM CHLORIDE 64 MG TABLET PO SCH ×2 (09:40→21:20)
[2020-11-19] MEDS: AMIODARONE 200 MG TABLET PER TUBE SCH ×2 (10:00→21:18)
[2020-11-19] MEDS: CETIRIZINE 10 MG TABLET PO SCH (10:00)
[2020-11-19] MEDS: ASPIRIN CHEW 81 MG TABLET PO SCH (10:00)
[2020-11-19] MEDS: PANTOPRAZOLE 40 MG VIAL IV SCH (10:01)
[2020-11-19] MEDS: FUROSEMIDE 40 MG/4 ML VIAL IV SCH ×2 (10:03→17:44)
[2020-11-19] MEDS: CEFEPIME 1,000 MG in SODIUM CHLORIDE 0.9% 100 ML IV SCH (10:12)
[2020-11-19] MEDS: POTASSIUM CHLORIDE 20 MEQ PACK PER TUBE SCH ×3 (10:15→17:42)
[2020-11-19] MEDS: MIDAZOLAM 100 MG in SODIUM CHLORIDE 0.9% 80 ML IV PRN (14:30)
[2020-11-19] MEDS: INSULIN GLARGINE 100 UNIT/ML SUBCUT SCH (21:18)
[2020-11-19] MEDS: ROSUVASTATIN 20 MG TABLET PO SCH (21:18)
[2020-11-20] MEDS: INSULIN LISPRO 100 UNIT/ML SUBCUT SCH ×6 (00:53→21:30)
[2020-11-20] MEDS: HYDROCORTISONE 100 MG VIAL IV SCH ×3 (00:53→21:31)
[2020-11-20] MEDS: ALBUTEROL/IPRATROPIUM 3 ML NEB RESP TX SCH ×4 (01:40→18:23)
[2020-11-20 04:03] LABS: ABG Base Excess 1.6 MMOL/L (-2.5-2.5); ABG HCO3 25.9 MMOL/L (20-26); ABG Oxygen Saturation 98.4 % (95-100); ABG PCO2 35.3 MM HG (35-48); ABG PH 7.462 (7.35-7.45); Basophils % 0.1 % (0.0-0.8); Eosinophils % 0.1 % (0.00-10.9); Hematocrit 30.3 VOL% (42.0-52.0); Hemoglobin 9.4 GM/DL (14.0-18.0); Immature Granulocytes % 0.6 %; Immature Granulocytes Absolute 0.07 #; Lymphocytes # 0.6 10*3/uL (1.4-4.0); Lymphocytes % 5.2 % (21.2-54.2); NRBC # 0.04 10*3/uL; Platelet Count 138 T/CUMM (130-400); Red Blood Count 3.19 MC/CUMM (3.8-5.5); Red Cell Distribution Width 14.8 % (9.3-17.3); White Blood Count 11.2 T/CUMM (4-12)
[2020-11-20 04:31] LABS: Calcium 8.1 MG/DL (8.5-10.1); Osmolality,Calculated 348.7 MOS/KG (273-304); Potassium 3.5 MMOL/L (3.5-5.1)
[2020-11-20] MEDS: MAGNESIUM CHLORIDE 64 MG TABLET PO SCH ×2 (08:12→21:32)
[2020-11-20] MEDS: BUDESONIDE/FORMOTEROL 160-4.5 INHALER 6 GM INH SCH ×2 (08:12→21:32)
[2020-11-20] MEDS: FUROSEMIDE 40 MG/4 ML VIAL IV SCH ×2 (08:14→10:33)
[2020-11-20] MEDS: PANTOPRAZOLE 40 MG VIAL IV SCH (08:20)
[2020-11-20] MEDS: AMIODARONE 200 MG TABLET PER TUBE SCH ×2 (08:22→21:31)
[2020-11-20] MEDS: CETIRIZINE 10 MG TABLET PO SCH (08:22)
[2020-11-20] MEDS: ASPIRIN CHEW 81 MG TABLET PO SCH (08:22)
[2020-11-20] MEDS: CEFEPIME 1,000 MG in SODIUM CHLORIDE 0.9% 100 ML IV SCH (09:45)
[2020-11-20] MEDS: INSULIN GLARGINE 100 UNIT/ML SUBCUT SCH (21:32)
[2020-11-20] MEDS: ROSUVASTATIN 20 MG TABLET PO SCH (21:32)
[2020-11-21] MEDS: ALBUTEROL/IPRATROPIUM 3 ML NEB RESP TX SCH ×4 (00:11→19:43)
[2020-11-21] MEDS: INSULIN LISPRO 100 UNIT/ML SUBCUT SCH ×6 (00:23→20:21)
[2020-11-21 04:19] LABS: ABG Base Excess 2.6 MMOL/L (-2.5-2.5); ABG HCO3 26.8 MMOL/L (20-26); ABG Oxygen Saturation 99.1 % (95-100); ABG PCO2 35.6 MM HG (35-48); ABG PH 7.472 (7.35-7.45); ABG TCO2 23.2 MMOL/L (23-27)
[2020-11-21 04:25] LABS: Basophils % 0.1 % (0.0-0.8); Eosinophils % 0.1 % (0.00-10.9); Hematocrit 30.6 VOL% (42.0-52.0); Hemoglobin 9.2 GM/DL (14.0-18.0); Immature Granulocytes Absolute 0.12 #; Lymphocytes # 1.3 10*3/uL (1.4-4.0); Lymphocytes % 10.9 % (21.2-54.2); Mean Corpuscular HGB Conc 30.1 GM/DL (32-36); Mean Corpuscular Volume 95.9 FL (87-102); Mean Platelet Volume 10.2 FL (9.6-12.0); Monocytes % 11.5 % (1.7-12.7); NRBC # 0.05 10*3/uL; Neutrophils % 76.4 % (38.7-73.9); Platelet Count 119 T/CUMM (130-400); Red Blood Count 3.19 MC/CUMM (3.8-5.5); Red Cell Distribution Width 14.8 % (9.3-17.3); White Blood Count 11.8 T/CUMM (4-12)
[2020-11-21 04:45] LABS: Calcium 7.8 MG/DL (8.5-10.1); Osmolality,Calculated 360.9 MOS/KG (273-304)
[2020-11-21] MEDS: MIDAZOLAM 100 MG in SODIUM CHLORIDE 0.9% 80 ML IV PRN (07:21)
[2020-11-21] MEDS: HYDROCORTISONE 100 MG VIAL IV SCH ×2 (07:59→20:34)
[2020-11-21] MEDS: CETIRIZINE 10 MG TABLET PO SCH (08:02)
[2020-11-21] MEDS: AMIODARONE 200 MG TABLET PER TUBE SCH ×2 (08:02→20:34)
[2020-11-21] MEDS: PANTOPRAZOLE 40 MG VIAL IV SCH (08:03)
[2020-11-21] MEDS: FUROSEMIDE 40 MG/4 ML VIAL IV SCH (08:04)
[2020-11-21] MEDS: CEFEPIME 1,000 MG in SODIUM CHLORIDE 0.9% 100 ML IV SCH (08:05)
[2020-11-21] MEDS: ASPIRIN CHEW 81 MG TABLET PO SCH (08:07)
[2020-11-21] MEDS: POTASSIUM BICARB EFFERVESCENT 20 MEQ TAB.EFF PO SCH ×2 (08:07→20:34)
[2020-11-21] MEDS: BUDESONIDE/FORMOTEROL 160-4.5 INHALER 6 GM INH SCH ×2 (08:13→20:35)
[2020-11-21] MEDS: MAGNESIUM CHLORIDE 64 MG TABLET PO SCH ×2 (08:13→20:22)
[2020-11-21] MEDS: ROSUVASTATIN 20 MG TABLET PO SCH (20:34)
[2020-11-21] MEDS: INSULIN GLARGINE 100 UNIT/ML SUBCUT SCH (20:35)
[2020-11-22] MEDS: ALBUTEROL/IPRATROPIUM 3 ML NEB RESP TX SCH ×4 (01:14→19:51)
[2020-11-22] MEDS: INSULIN LISPRO 100 UNIT/ML SUBCUT SCH ×6 (02:09→21:09)
[2020-11-22 04:03] LABS: Basophils % 0.1 % (0.0-0.8); Eosinophils % 0.1 % (0.00-10.9); Hematocrit 30.1 VOL% (42.0-52.0); Immature Granulocytes % 0.9 %; Immature Granulocytes Absolute 0.13 #; Lymphocytes # 1.7 10*3/uL (1.4-4.0); Lymphocytes % 11.7 % (21.2-54.2); Mean Corpuscular HGB Conc 29.9 GM/DL (32-36); Mean Platelet Volume 10.1 FL (9.6-12.0); Monocytes % 12.8 % (1.7-12.7); NRBC # 0.03 10*3/uL; Neutrophils % 74.4 % (38.7-73.9); Platelet Count 103 T/CUMM (130-400); Red Blood Count 3.07 MC/CUMM (3.8-5.5); White Blood Count 14.2 T/CUMM (4-12)
[2020-11-22 04:51] LABS: Calcium 8.1 MG/DL (8.5-10.1); Potassium 2.8 MMOL/L (3.5-5.1)
[2020-11-22 05:29] LABS: Osmolality,Calculated 356.9 MOS/KG (273-304)
[2020-11-22] MEDS: BUDESONIDE/FORMOTEROL 160-4.5 INHALER 6 GM INH SCH ×3 (06:20→21:11)
[2020-11-22] MEDS ORDERED: POTASSIUM CHLORIDE RIDER 20 MEQ/100 ML PREMIX IV ONE (08:42)
[2020-11-22] MEDS: HYDROCORTISONE 100 MG VIAL IV SCH ×2 (08:58→21:09)
[2020-11-22] MEDS: PANTOPRAZOLE 40 MG VIAL IV SCH (08:59)
[2020-11-22] MEDS: ASPIRIN CHEW 81 MG TABLET PO SCH (08:59)
[2020-11-22] MEDS: POTASSIUM BICARB EFFERVESCENT 20 MEQ TAB.EFF PO SCH ×2 (08:59→21:10)
[2020-11-22] MEDS: AMIODARONE 200 MG TABLET PER TUBE SCH ×2 (08:59→21:10)
[2020-11-22] MEDS: MAGNESIUM CHLORIDE 64 MG TABLET PO SCH ×2 (09:00→21:11)
[2020-11-22] MEDS: CETIRIZINE 10 MG TABLET PO SCH (09:00)
[2020-11-22] MEDS ORDERED: SODIUM CHLORIDE 0.45% 1,000 ML IV SCH (12:00)
[2020-11-22] MEDS: DEXTROSE 5% 1,000 ML IV SCH (13:13)
[2020-11-22] MEDS: INSULIN GLARGINE 100 UNIT/ML SUBCUT SCH (21:09)
[2020-11-22] MEDS: ROSUVASTATIN 20 MG TABLET PO SCH (21:10)
[2020-11-23] MEDS: ALBUTEROL/IPRATROPIUM 3 ML NEB RESP TX SCH ×4 (00:07→19:10)
[2020-11-23] MEDS: INSULIN LISPRO 100 UNIT/ML SUBCUT SCH ×6 (00:27→20:37)
[2020-11-23] MEDS: DEXTROSE 5% 1,000 ML IV SCH ×2 (02:30→17:09)
[2020-11-23 03:25] LABS: Basophils % 0.2 % (0.0-0.8); Eosinophils % 0.1 % (0.00-10.9); Hematocrit 26.8 VOL% (42.0-52.0); Hemoglobin 7.9 GM/DL (14.0-18.0); Immature Granulocytes % 1.1 %; Immature Granulocytes Absolute 0.14 #; Lymphocytes # 1.1 10*3/uL (1.4-4.0); Lymphocytes % 8.5 % (21.2-54.2); Mean Corpuscular HGB Conc 29.5 GM/DL (32-36); Mean Platelet Volume 11.5 FL (9.6-12.0); Monocytes % 8.8 % (1.7-12.7); NRBC # 0.12 10*3/uL; Neutrophils % 81.3 % (38.7-73.9); Platelet Count 107 T/CUMM (130-400); Red Blood Count 2.68 MC/CUMM (3.8-5.5)
[2020-11-23 03:44] LABS: Calcium 7.6 MG/DL (8.5-10.1); Osmolality,Calculated 366.2 MOS/KG (273-304)
[2020-11-23 03:58] LABS: Eosinophils 1 % (0-10); Hypochromasia 1+; Lymphocytes 7 % (20-55); Microcytosis 1+; Platelet Estimate Decreased; Segmented Neutrophils 83 % (50-85); Total Cells Counted 100
[2020-11-23] MEDS: POTASSIUM BICARB EFFERVESCENT 20 MEQ TAB.EFF PO SCH ×3 (08:26→20:37)
[2020-11-23] MEDS: AMIODARONE 200 MG TABLET PER TUBE SCH ×2 (08:26→20:37)
[2020-11-23] MEDS: ASPIRIN CHEW 81 MG TABLET PO SCH (08:26)
[2020-11-23] MEDS: CETIRIZINE 10 MG TABLET PO SCH (08:26)
[2020-11-23] MEDS: PANTOPRAZOLE 40 MG VIAL IV SCH (08:27)
[2020-11-23] MEDS: HYDROCORTISONE 100 MG VIAL IV SCH ×2 (08:38→20:36)
[2020-11-23] MEDS: MAGNESIUM CHLORIDE 64 MG TABLET PO SCH ×2 (08:40→22:42)
[2020-11-23] MEDS: BUDESONIDE/FORMOTEROL 160-4.5 INHALER 6 GM INH SCH ×2 (08:41→20:37)
[2020-11-23] MEDS: INSULIN GLARGINE 100 UNIT/ML SUBCUT SCH (20:37)
[2020-11-23] MEDS: ROSUVASTATIN 20 MG TABLET PO SCH (20:37)
[2020-11-23] MEDS: ACETAMINOPHEN 325 MG TABLET PO PRN (20:44)
[2020-11-24] MEDS: ALBUTEROL/IPRATROPIUM 3 ML NEB RESP TX SCH ×2 (01:00→07:14)
[2020-11-24] MEDS: INSULIN LISPRO 100 UNIT/ML SUBCUT SCH ×3 (01:26→09:14)
[2020-11-24] MEDS: ACETAMINOPHEN 325 MG TABLET PO PRN (05:29)
[2020-11-24] MEDS: DEXTROSE 5% 1,000 ML IV SCH (06:28)
[2020-11-24 06:54] LABS: Basophils % 0.1 % (0.0-0.8); Eosinophils % 0.1 % (0.00-10.9); Hematocrit 26.9 VOL% (42.0-52.0); Hemoglobin 8.2 GM/DL (14.0-18.0); Immature Granulocytes % 1.4 %; Immature Granulocytes Absolute 0.22 #; Lymphocytes # 1.4 10*3/uL (1.4-4.0); Lymphocytes % 9.3 % (21.2-54.2); Mean Corpuscular HGB Conc 30.5 GM/DL (32-36); Mean Corpuscular Volume 97.8 FL (87-102); Monocytes % 7.1 % (1.7-12.7); NRBC # 0.93 10*3/uL; Platelet Count 113 T/CUMM (130-400); Red Blood Count 2.75 MC/CUMM (3.8-5.5); Red Cell Distribution Width 15.2 % (9.3-17.3); White Blood Count 15.3 T/CUMM (4-12)
[2020-11-24 07:22] VITALS: BP 76/41
[2020-11-24 07:24] LABS: Hypochromasia 1+; Lymphocytes 13 % (20-55); Microcytosis 1+; Nucleated Red Blood Cells 2 (0-5); Platelet Estimate Decreased; Segmented Neutrophils 78 % (50-85); Total Cells Counted 100
[2020-11-24 07:57] LABS: Calcium 7.3 MG/DL (8.5-10.1); Osmolality,Calculated 375.7 MOS/KG (273-304)
[2020-11-24] MEDS: MAGNESIUM CHLORIDE 64 MG TABLET PO SCH (08:01)
[2020-11-24] MEDS: ASPIRIN CHEW 81 MG TABLET PO SCH (09:13)
[2020-11-24] MEDS: POTASSIUM BICARB EFFERVESCENT 20 MEQ TAB.EFF PO SCH (09:13)
[2020-11-24] MEDS: AMIODARONE 200 MG TABLET PER TUBE SCH (09:14)
[2020-11-24] MEDS: CETIRIZINE 10 MG TABLET PO SCH (09:14)
[2020-11-24] MEDS: PANTOPRAZOLE 40 MG VIAL IV SCH (09:15)
[2020-11-24] MEDS: HYDROCORTISONE 100 MG VIAL IV SCH (09:15)
[2020-11-24] MEDS: BUDESONIDE/FORMOTEROL 160-4.5 INHALER 6 GM INH SCH (09:34)
[2020-11-24] MEDS ORDERED: MORPHINE 2 MG/1 ML SYRINGE IV PRN (10:10)
[2020-11-24 10:32] LABS: ABG Base Excess -12.9 MMOL/L (-2.5-2.5); ABG HCO3 10.8 MMOL/L (20-26); ABG Oxygen Saturation 97.4 % (95-100); ABG PH 7.369 (7.35-7.45); ABG PO2 129.1 MM HG (80-95); ABG TCO2 11.4 MMOL/L (23-27)
[2020-11-24 10:35] LABS: ABG PCO2 19.1 MM HG (35-48)
== END 2020-11-24 13:15 | disposition expired | DRG 163 ==
LOC: SUATTDRO → N.EDINP 01:34 → N.ED 01:34 → SUATTDRO 03:13 → N.EDINP 08:39 → N.TELES 09:12 → SUATTDRO 11-10 15:13 → N.ICU 11-11 14:31 → N.CVR 11-21 18:40 → N.3E 11-23 09:42
PROVIDERS: ADMIT Internal Medicine; ATTEND Internal Medicine